=== PATIENT | female | born 1980 | race Caucasian/White ===

== ENCOUNTER 2023-08-22 21:58 | Emergency (ER) | payer OTHER, SELFPAY ==
[2023-08-22 22:06] VITALS: BP 120/80; PULSE 89; O2SAT 100
[2023-08-22 22:11] VITALS: BP 117/85; PULSE 85; RESP 16; TEMP 37.1; O2SAT 98; BMI 44.2
--- NOTE | 2023-08-22 23:27 | PC.NURSE ---
Took over care from DOV Moyer, pt resting in bed, no sign of distress, awaiting to be seen by provider.
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
[2023-08-23 00:19] LABS: Basophils Percent Auto 0.4 % (0-2); Eosinophils Absolute Auto 0.2 X10*3/uL (0.0-0.4); Eosinophils Percent Auto 1.8 % (0-4); Hematocrit 38.5 % (37.0-47.0); Hemoglobin 12.1 g/dl (12.0-16.0); Imm Gran Abs Auto 0.03 X10*3/uL (0.00-0.03); Imm Gran Pct Auto 0.4 % (0.0-0.4); Lymphocytes Absolute Auto 2.6 X10*3/uL (1.2-4.9); Lymphocytes Percent Auto 30.9 % (20-40); MANUAL DIFF FLAG NO; Mean Corpuscular HGB Conc 31.4 g/dl (31.0-35.0); Mean Corpuscular Hemoglobin 26.2 pg (27.0-33.0); Mean Corpuscular Volume 83.5 fL (80.0-98.0); Mean Platelet Volume 10.7 fL (9.4-12.3); Monocytes Absolute Auto 0.7 X10*3/uL (0.1-1.2); Monocytes Percent Auto 8.3 % (2-11); Neutrophils Absolute Auto 4.9 x10*3/uL (2.0-8.3); Neutrophils Percent Auto 58.2 % (45-73); Platelet Count 249 X10*3/uL (160-400); Red Blood Count 4.61 X10*6/uL (4.20-5.50); Red Cell Distribution Width 15.9 % (11.0-16.0); White Blood Count 8.4 X10*3/uL (4.8-10.8)
[2023-08-23 00:36] LABS: Anion Gap 12 (12-20); Blood Urea Nitrogen 17 mg/dL (9-16); Calcium 8.9 mg/dL (8.4-10.2); Carbon Dioxide 18 mmol/L (22-29); Chloride 111 mmol/L (96-108); Creatinine Clr Calc Pharmacy 113.9; Estimated Glomerular Filt Rate > 60; Glucose Random 115 mg/dL (60-115); Potassium 3.9 mmol/L (3.3-5.1); Sodium 137 mmol/L (135-145)
[2023-08-23 01:08] VITALS: BP 128/83; PULSE 89; RESP 17; TEMP 36.8; O2SAT 95
--- NOTE | 2023-08-23 01:26 | PC.NURSE ---
Provider into assess pt and discuss follow up appointment once discharge. Reviewed discharge instructions with pt. pt verbalized understanding. Per Pt. Called [facility], to request a ride back to the facility. [facility] employee will call me back.
--- NOTE | 2023-08-23 01:37 | PC.NURSE ---
shut off worker called back and is picking up pt.
== END 2023-08-23 01:38 | disposition home or self-care (01) ==
PROVIDERS: Emergency Provider Emergency Medicine; PCP Family Medicine
DX: L90.5 Scar conditions and fibrosis of skin (principal); R58 Hemorrhage, not elsewhere classified; S80.9 Unspecified superficial injury of knee and lower leg; X58.XXXS Exposure to other specified factors, sequela
CPT/HCPCS: 36415; 80048; 85025; 99283; 99284

== ENCOUNTER 2023-08-30 16:51 | Emergency (ER) | payer OTHER, SELFPAY ==
--- NOTE | ~2023-08-30 | XR_ITS ---
Examination: XR tibia fibula LT 2V, XR tibia fibula RT 2V, XR lumbar spine 2-3V Indication: Osteomyelitis? Chronic wounds. Fell and hit back Comparison: No pertinent prior studies are currently available for comparison. Technique: 2 views of the right tibia and fibula with 2 views of the left tibia and fibula as well as frontal and 2 lateral views of the lumbosacral spine. Findings: Right tibia/fibula: There is diffuse soft tissue swelling about the visualized leg. I do not appreciate any underlying acute bony abnormality. No fracture or dislocation. No bony destructive lesions, erosions, or periosteal reaction. No radiopaque foreign body or soft tissue gas. Left tibia/fibula: A milder soft tissue swelling is seen diffusely about the lower extremity. Again there is no acute underlying bony abnormality. No fracture or dislocation. No bony destructive lesions or periosteal reaction. No radiopaque foreign body or soft tissue gas. Lumbosacral spine: Bones are normal anatomic alignment with no acute fracture or spondylolisthesis. Degenerative changes are seen with osteophyte formation and endplate sclerosis more so in the lower lumbar spine. Mild sclerotic degenerative changes in the lower lumbar spine as well. No significant loss of vertebral body height. Unremarkable bowel gas pattern. Incidental tubal ligation clips noted. XR/XR tibia fibula RT 2V Impression: 1. Soft tissue swelling but no acute fracture or dislocation. No bony destructive lesions or periosteal reaction. 2. Degenerative changes in the lower lumbar spine but no acute fracture or dislocation.
--- NOTE | ~2023-08-30 | XR_ITS ---
Examination: XR tibia fibula LT 2V, XR tibia fibula RT 2V, XR lumbar spine 2-3V Indication: Osteomyelitis? Chronic wounds. Fell and hit back Comparison: No pertinent prior studies are currently available for comparison. Technique: 2 views of the right tibia and fibula with 2 views of the left tibia and fibula as well as frontal and 2 lateral views of the lumbosacral spine. Findings: Right tibia/fibula: There is diffuse soft tissue swelling about the visualized leg. I do not appreciate any underlying acute bony abnormality. No fracture or dislocation. No bony destructive lesions, erosions, or periosteal reaction. No radiopaque foreign body or soft tissue gas. Left tibia/fibula: A milder soft tissue swelling is seen diffusely about the lower extremity. Again there is no acute underlying bony abnormality. No fracture or dislocation. No bony destructive lesions or periosteal reaction. No radiopaque foreign body or soft tissue gas. Lumbosacral spine: Bones are normal anatomic alignment with no acute fracture or spondylolisthesis. Degenerative changes are seen with osteophyte formation and endplate sclerosis more so in the lower lumbar spine. Mild sclerotic degenerative changes in the lower lumbar spine as well. No significant loss of vertebral body height. Unremarkable bowel gas pattern. Incidental tubal ligation clips noted. XR/XR lumbar spine 2-3V Impression: 1. Soft tissue swelling but no acute fracture or dislocation. No bony destructive lesions or periosteal reaction. 2. Degenerative changes in the lower lumbar spine but no acute fracture or dislocation.
--- NOTE | ~2023-08-30 | XR_ITS ---
Examination: XR tibia fibula LT 2V, XR tibia fibula RT 2V, XR lumbar spine 2-3V Indication: Osteomyelitis? Chronic wounds. Fell and hit back Comparison: No pertinent prior studies are currently available for comparison. Technique: 2 views of the right tibia and fibula with 2 views of the left tibia and fibula as well as frontal and 2 lateral views of the lumbosacral spine. Findings: Right tibia/fibula: There is diffuse soft tissue swelling about the visualized leg. I do not appreciate any underlying acute bony abnormality. No fracture or dislocation. No bony destructive lesions, erosions, or periosteal reaction. No radiopaque foreign body or soft tissue gas. Left tibia/fibula: A milder soft tissue swelling is seen diffusely about the lower extremity. Again there is no acute underlying bony abnormality. No fracture or dislocation. No bony destructive lesions or periosteal reaction. No radiopaque foreign body or soft tissue gas. Lumbosacral spine: Bones are normal anatomic alignment with no acute fracture or spondylolisthesis. Degenerative changes are seen with osteophyte formation and endplate sclerosis more so in the lower lumbar spine. Mild sclerotic degenerative changes in the lower lumbar spine as well. No significant loss of vertebral body height. Unremarkable bowel gas pattern. Incidental tubal ligation clips noted. XR/XR tibia fibula LT 2V Impression: 1. Soft tissue swelling but no acute fracture or dislocation. No bony destructive lesions or periosteal reaction. 2. Degenerative changes in the lower lumbar spine but no acute fracture or dislocation.
--- NOTE | ~2023-08-30 | CT_ITS ---
EXAMINATION: CT HEAD WITHOUT CONTRAST CLINICAL INFORMATION: Headache status-post fall. COMPARISON: None. TECHNIQUE: Contiguous axial imaging was performed from the skull base to vertex without intravenous administration of contrast. Multiplanar reformatted images are submitted. This CT examination was performed using dose optimization techniques as appropriate, variously including the following: *Automated exposure control *Adjustment of mA and/or kV according to patient size (this includes techniques or standardized protocols for targeted exams where dose is matched to indication/reason for exam; i.e. extremities or head) *Use of iterative reconstruction technique DLP: 1296 mGy-cm (head and cervical spine) FINDINGS: There is no acute intracranial hemorrhage or evidence of territorial infarction. No abnormal mass effect or midline shift is seen. [place] to white matter differentiation is well preserved. There is no abnormal attenuation within the brain parenchyma. The ventricles are normal in size. No extra-axial fluid collections are identified. The calvarium and scalp soft tissues are normal. The middle ear cavity and mastoid air cells are clear. The visualized paranasal sinuses are clear. 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 CT/CT cervical spine wo IV con IMPRESSION: No acute intracranial pathology. EXAMINATION: CT CERVICAL SPINE WITHOUT CONTRAST CLINICAL INFORMATION: Neck pain status-post fall. COMPARISON: None available. TECHNIQUE: Contiguous axial imaging was performed through the cervical spine without intravenous administration of contrast. Multiplanar reformatted images are submitted. This CT examination was performed using dose optimization techniques as appropriate, variously including the following: *Automated exposure control *Adjustment of mA and/or kV according to patient size (this includes techniques or standardized protocols for targeted exams where dose is matched to indication/reason for exam; i.e. extremities or head) *Use of iterative reconstruction technique DLP: As above FINDINGS: Vertebral body heights are normal. There is mild reversal of the normal lordotic curvature. At C5-C6, there is moderately severe disc space narrowing. At C7-T1, there is mild disc space narrowing. The remaining disc spaces are well-maintained. No acute fracture or spondylolisthesis is seen. There is multi-level cervical spondylosis, most pronounced at C4-C5 and C5-C6, where it is moderate. The posterior elements are intact. There is no prevertebral soft tissue swelling. The dens is intact. The bilateral lung apices are clear. IMPRESSION: 1. No acute fracture or spondylolisthesis is seen. 2. There is mild reversal of the normal lordotic curvature, which may be associated with muscle spasm. 3. There is moderate degenerative disc disease at C5-C6, and mild degenerative disc disease is seen at C7-T1. 4. There is multi-level cervical spondylosis, most pronounced at C4-C5 and C5-C6, where it is moderate. Fleischner guidelines were followed.
[2023-08-30 16:58] VITALS: BP 160/92; PULSE 94; O2SAT 96
[2023-08-30 17:06] VITALS: BP 161/99; PULSE 98; RESP 16; TEMP 36.6; O2SAT 98; BMI 41.3
--- NOTE | 2023-08-30 17:44 | ED_ITS ---
HPI - General Adult General Chief complaint: Wound/Laceration Stated complaint: DIFFICULTY AMBULATING Time Seen by Provider: 08/30/23 17:16 Source: patient Mode of arrival: ambulatory Limitations: no limitations History of Present Illness HPI narrative: 43 yold female with chronic lower extremity wounds and substance abuse ( clean for a year) presents to the ED for evaluation of bilateral lower extremity wounds and also fallin gdown the stairs. patient states she fell down the stairs and hit her head, neck and lower back. pateitn states going down the stairs she lost footing. Patient denies loss of conscisouness. Patient denies any fever, chills, chest pain, shortness of breath, or redness. Patient has not been to wound clinic since she moved to this area 6 months. patient states chronic wounds. Related Data Allergies Allergy/AdvReac Type Severity Reaction Status Date / Time bee pollen [bee stings] Allergy Anaphylaxis Verified 08/22/23 22:10 bupropion [From Wellbutrin] Allergy Hives Verified 08/22/23 22:10 codeine Allergy Hives Verified 08/22/23 22:10 oxcarbazepine Allergy Hives Verified 08/22/23 22:10 Review of Systems 2 Review of Systems: headache, posterior neck pain and lower back pain after falling. lower extremity chronic wounds Yes all other systems are reviewed and are negative [facility] Past Medical History Medical History (Updated 08/31/23 @ 00:01 by Elle Alexander) Asthma Social History Social History Alcohol intake: former Smoked in Last 30 Days: Yes Use of substances other than those prescribed or required for medical reasons: No Advance Directives: No Advance Directives Information Provided: No Physical Exam ED Vital Signs: Vital Signs - 24 hr 08/30/23 21:56 Temperature 98.3 F Pulse Rate 92 Respiratory Rate 16 Blood Pressure 140/92 H Pulse Oximetry 97 Oxygen Delivery Method Room Air BMI result Body Mass Index 41.3 Const General: cooperative, healthy appearing, comfortable, no acute distress, well developed, alert, awake and Physically active Orientation/consciousness: oriented to person, oriented to place, oriented to time and patient oriented x3 HENMT Head: Yes normal to inspection, Yes No palpable skull fracture present, Yes normocephalic and Yes atraumatic Throat: Yes posterior oropharynx normal, Yes tonsils normal and Yes uvula midline Eyes General: appearance normal, both eyes and all related structures Neck Neck: Yes normal visual inspection, Yes full ROM, Yes no lymphadenopathy, Yes no meningeal signs, Yes trachea midline, Yes supple, No anterior neck swelling and No tender Chest Chest palpation & inspection: normal inspection of the chest and normal palpation of entire chest wall Resp Effort & Inspection: normal respiratory effort and able to speak in complete sentences Auscultation: clear to auscultation bilaterally Cardio Jugular venous distension: no JVD Heart sounds: S1 normal heart sound present and S2 normal heart sound present GI Inspection: Yes normal to inspection and No abdominal wall ecchymosis Palpation (GI): Soft to palpation, not firm, nontender, no guarding and not rigid General: Yes no CVA tenderness Back/Spine/Pelvis Back: no CVA tenderness, back tenderness (lumbar spine tenderness) and other Skin Other: chronic open wounds of lower extremites Neuro General: oriented to person, oriented to place, oriented to time, patient oriented x3, gait normal, tone normal, moves all extremities, Normal light touch and pain sensation, no meningeal signs, no focal motor deficits, CN's II-XI intact bilaterally and normal sensation to monofilament Extrem Other: Bilateral leg wounds are chronic. motor/neuro/vacular exam is intact. negative for signs of cellulitis, necrotizing fasticitis, comparmtnet syndrome, or fracture. Psych Appearance: grossly normal Medications Administered Discontinued Medications Generic Name Dose Route Start Last Admin Trade Name Freq PRN Reason Stop Dose Admin Acetaminophen 975 mg 08/30/23 18:01 08/30/23 18:06 Acetaminophen 325 Mg Tablet PO 08/30/23 18:02 975 mg ONCE ONE Administration Medical Decision Making Medical Decision Making [facility] Narrative: 43-year-old female with history of substance abuse been clean for 1 year and has chronic bilateral lower extremity wounds from a last year presents to ED for evaluation of bilateral lower extremity wounds and also falling which cause headache and low back pain. Fall occurred today at 15:30 the patient slipped muscle footing going down the stairs. Patient has not been to Wound Clinic for 6 months since moving to this area. Labs imaging ordered. 9:17pm: patient labs are normal. Images negative for osteomyelitis, fracture, brain bleed. Patient is safe for discharge. Patient wounds are chronic. Patient will be given information for wound clinic Differential Diagnosis Differential Diagnoses: The differential diagnosis associated with the presentation includes ( chronic wounds, osteomyelitis, cellulitis, brain bleed, lumbar spine fracture, cervical spine fracture) Admission/Observation Consideration of admission/observation: Escalation of care including admission/observation considered Lab Data MDM Lab Attestation statement: I reviewed the patient's lab results. 08/30/23 18:47 08/30/23 18:46 Labs: Lab Results 08/30/23 08/30/23 Range/Units 18:46 18:47 WBC 9.0 (4.8-10.8) X10*3/uL RBC 4.56 (4.20-5.50) X10*6/uL Hgb 11.8 L (12.0-16.0) g/dl Hct 37.8 (37.0-47.0) % MCV 82.9 (80.0-98.0) fL MCH 25.9 L (27.0-33.0) pg MCHC 31.2 (31.0-35.0) g/dl RDW 16.2 H (11.0-16.0) % Plt Count 237 (160-400) X10*3/uL MPV 10.3 (9.4-12.3) fL Immature Gran % (Auto) 0.4 (0.0-0.4) % Neut % (Auto) 60.9 (45-73) % Lymph % (Auto) 28.9 (20-40) % Coke % (Auto) 7.9 (2-11) % Eos % (Auto) 1.6 (0-4) % Baso % (Auto) 0.3 (0-2) % Lymph # (Auto) 2.6 (1.2-4.9) X10*3/uL [place] # (Auto) 0.7 (0.1-1.2) X10*3/uL Eos # (Auto) 0.1 (0.0-0.4) X10*3/uL Baso # (Auto) 0.0 (0.0-0.2) X10*3/uL Abs Immat Gran (auto) 0.04 H (0.00-0.03) X10*3/uL Absolute Neuts (auto) 5.4 (2.0-8.3) x10*3/uL Absolute Nucleated RBC 0.000 (0.0-0.012) X10*3/uL Nucleated RBC % (auto) 0.0 (0.0-0.2) /100WBC ESR 20 (0-20) MM/HR Sodium 140 (135-145) mmol/L Potassium 4.0 (3.3-5.1) mmol/L Chloride 107 (96-108) mmol/L Carbon Dioxide 27 (22-29) mmol/L Anion Gap 10 L (12-20) BUN 19 H (9-16) mg/dL Creatinine 0.71 (0.5-1.4) mg/dL Estim Creat Clear Calc 130.9 Estimated GFR > 60 Random Glucose 92 (60-115) mg/dL Calcium 8.8 (8.4-10.2) mg/dL Total Bilirubin 0.3 (0.0-1.0) mg/dL AST 41 H (5-31) U/L ALT 49 H (0-31) U/L Alkaline Phosphatase 106 (39-117) U/L C-Reactive Protein 1.35 H (< or = 0.50) mg/dL Total Protein 7.7 (6.5-8.0) g/dL Albumin 3.6 (3.5-5.0) g/dL Independent Interpretation I performed an independent interpretation of an: Plain X-Ray and CT Scan Radiology Impression Discussion of test interpretation with radiology: I have reviewed the radiologist's reading. External Record Review External record reviewed: Other ( prior to ED visit) Discharge Plan Discharge Clinical Impression: Chronic wound Patient Disposition: Home, Self-Care Instructions: Fall Prevention (ED), Chronic Wounds (ED) Additional Instructions: return to the ED immediately any such increased swelling, redness, pus discharge, foul odor,, headache, dizziness, chest pain, shortness of breath, dizziness, weakness, or any other other concerning symptoms. Please follow-up with primary care provider and Wound Clinic. Referrals: [facility] Wound Care Management [Provider Group] ( Chronic bilateral lower extremity wounds) Interventions: ED Discharge Assessment Last Done: 08/30/23 21:56 Discharge Date/Time: 08/30/23 22:01 Print Language: Macedonian
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
[2023-08-30] MEDS: Acetaminophen 325 MG TABLET 975 MG PO (18:06)
[2023-08-30 18:51] LABS: MANUAL DIFF FLAG NO
[2023-08-30 18:52] LABS: Basophils Percent Auto 0.3 % (0-2); Eosinophils Absolute Auto 0.1 X10*3/uL (0.0-0.4); Eosinophils Percent Auto 1.6 % (0-4); Hematocrit 37.8 % (37.0-47.0); Hemoglobin 11.8 g/dl (12.0-16.0); Imm Gran Abs Auto 0.04 X10*3/uL (0.00-0.03); Imm Gran Pct Auto 0.4 % (0.0-0.4); Lymphocytes Absolute Auto 2.6 X10*3/uL (1.2-4.9); Lymphocytes Percent Auto 28.9 % (20-40); Mean Corpuscular HGB Conc 31.2 g/dl (31.0-35.0); Mean Corpuscular Hemoglobin 25.9 pg (27.0-33.0); Mean Corpuscular Volume 82.9 fL (80.0-98.0); Mean Platelet Volume 10.3 fL (9.4-12.3); Monocytes Absolute Auto 0.7 X10*3/uL (0.1-1.2); Monocytes Percent Auto 7.9 % (2-11); Neutrophils Absolute Auto 5.4 x10*3/uL (2.0-8.3); Neutrophils Percent Auto 60.9 % (45-73); Platelet Count 237 X10*3/uL (160-400); Red Blood Count 4.56 X10*6/uL (4.20-5.50); Red Cell Distribution Width 16.2 % (11.0-16.0)
[2023-08-30 19:08] LABS: Alanine Aminotransferase 49 U/L (0-31); Albumin Level 3.6 g/dL (3.5-5.0); Alkaline Phosphatase 106 U/L (39-117); Anion Gap 10 (12-20); Aspartate Amino Transferase 41 U/L (5-31); Bilirubin Total 0.3 mg/dL (0.0-1.0); Blood Urea Nitrogen 19 mg/dL (9-16); C Reactive Protein 1.35 mg/dL (< or = 0.50); Calcium 8.8 mg/dL (8.4-10.2); Carbon Dioxide 27 mmol/L (22-29); Chloride 107 mmol/L (96-108); Creatinine Clr Calc Pharmacy 130.9; Estimated Glomerular Filt Rate > 60; Glucose Random 92 mg/dL (60-115); Sodium 140 mmol/L (135-145); Total Protein 7.7 g/dL (6.5-8.0)
[2023-08-30 19:28] VITALS: BP 148/82; PULSE 90; RESP 20; TEMP 36.7; O2SAT 98
[2023-08-30 19:31] LABS: Erythrocyte Sedimentation Rate 20 MM/HR (0-20)
[2023-08-30 21:56] VITALS: BP 140/92; PULSE 92; RESP 16; TEMP 36.8; O2SAT 97
== END 2023-08-30 22:01 | disposition home or self-care (01) ==
PROVIDERS: Physician Assistant; Emergency Provider Internal Medicine
DX: L98.499 Non-pressure chronic ulcer of skin of other sites with unspecified severity (principal); S09.90XA Unspecified injury of head, initial encounter; S19.9XXA Unspecified injury of neck, initial encounter; S39.92XA Unspecified injury of lower back, initial encounter; W10.9XXA Fall (on) (from) unspecified stairs and steps, initial encounter; Y93.9 Activity, unspecified; Y92.9 Unspecified place or not applicable; Y99.9 Unspecified external cause status; R51.9 Headache, unspecified; M54.50 Low back pain, unspecified
CPT/HCPCS: 36415; 70450; 72100; 72125; 73590; 80053; 85025; 85652; 86140; 99284

== ENCOUNTER 2023-09-07 13:04 | Inpatient (IN) | payer OTHER, SELFPAY ==
[2023-09-07 13:15] VITALS: BP 160/80; PULSE 70; PULSE 83; RESP 16; TEMP 36.4; O2SAT 98; O2SAT 99; BMI 39.9
--- NOTE | 2023-09-07 13:20 | PC.NURSE ---
patient arrived via ems. Patient called EMS today for a psych evaluation and reports increasing depression. Patient states she has a history of self harm but that she has not self harmed yet but feels her depression is escalating where she could hurt herself. Patient denies SI/HI. Patient is able to ambulate freely. Patient changed into hospital attire. belongings secured.
[2023-09-07 13:55] LABS: UPreg QC Valid YES; Urine Pregnancy NEGATIVE (NEGATIVE)
[2023-09-07 13:55] LABS: Amphetamine Screen Urine Not Detected (Not Detect); Barbiturates, Urine Not Detected (Not Detect); Benzodiazepines Screen Urine Not Detected (Not Detect); Cannabinoid Screen Urine Not Detected (Not Detect); Cocaine Screen Urine Not Detected (Not Detect); Fentanyl, urine Not Detected (Not Detect); Opiate Screen Urine Not Detected (Not Detect); Phencyclidine Screen Urine Not Detected (Not Detect)
[2023-09-07 14:03] LABS: Appearance Urine Cloudy; Color Urine Dark Yellow; Glucose Urine UA Negative (Negative); Leukocyte Esterase Urine Small (1+) (Negative); Nitrite Urine Negative (Negative); Specific Gravity - Urine >= 1.030 (1.005-1.025); UMIC TRIGGER UACC YES; Urine Blood Large (3+) (Negative); Urine Ketones Negative (Negative); Urine Protein 30 (1+) mg/dL (Neg-Trace)
[2023-09-07 14:09] LABS: Bacteria Urine None Seen (None Seen); Hyaline Casts Urine 0-2 /LPF (0-2); RBC Urine >20 /HPF (0-2); UACC Culture Trigger YES; WBC Urine 21-50 /HPF (0-5)
--- NOTE | 2023-09-07 14:46 | MHC.CARE ---
Morro Murray with [facility] calls, requesting to be called once dispo is determined, . This is patient's current fci
[2023-09-07 15:10] VITALS: RESP 16
[2023-09-07 15:11] LABS: Acetaminophen LAB < 3 mcg/mL (<30); Salicylate < 5.0 mg/dL (15-30)
[2023-09-07 15:16] LABS: Alanine Aminotransferase 58 U/L (0-31); Albumin Level 3.6 g/dL (3.5-5.0); Alkaline Phosphatase 114 U/L (39-117); Anion Gap 10 (12-20); Aspartate Amino Transferase 59 U/L (5-31); Bilirubin Total 0.3 mg/dL (0.0-1.0); Blood Urea Nitrogen 15 mg/dL (9-16); Calcium 8.1 mg/dL (8.4-10.2); Carbon Dioxide 22 mmol/L (22-29); Chloride 110 mmol/L (96-108); Estimated Glomerular Filt Rate > 60; Ethanol < 10 mg/dL; Glucose Random 111 mg/dL (60-115); Potassium 3.8 mmol/L (3.3-5.1); Sodium 138 mmol/L (135-145); Total Protein 7.5 g/dL (6.5-8.0)
[2023-09-07 15:20] LABS: MANUAL DIFF FLAG NO
[2023-09-07 15:22] LABS: Basophils Percent Auto 0.3 % (0-2); Eosinophils Absolute Auto 0.1 X10*3/uL (0.0-0.4); Eosinophils Percent Auto 2.2 % (0-4); Hematocrit 35.4 % (37.0-47.0); Imm Gran Abs Auto 0.02 X10*3/uL (0.00-0.03); Imm Gran Pct Auto 0.3 % (0.0-0.4); Lymphocytes Percent Auto 33.8 % (20-40); Mean Corpuscular HGB Conc 31.1 g/dl (31.0-35.0); Mean Corpuscular Hemoglobin 25.9 pg (27.0-33.0); Mean Corpuscular Volume 83.3 fL (80.0-98.0); Mean Platelet Volume 10.2 fL (9.4-12.3); Monocytes Absolute Auto 0.6 X10*3/uL (0.1-1.2); Neutrophils Absolute Auto 3.2 x10*3/uL (2.0-8.3); Neutrophils Percent Auto 53.4 % (45-73); Platelet Count 260 X10*3/uL (160-400); Red Blood Count 4.25 X10*6/uL (4.20-5.50); Red Cell Distribution Width 16.6 % (11.0-16.0)
[2023-09-07 18:07] VITALS: RESP 18
--- NOTE | 2023-09-07 18:08 | PC.NURSE ---
patient alert and oriented and able to make needs known. Patient is able to ambulate freely around unit. Patient has a good appetite and ate 100% of lunch and dinner. Patient denies SI/HI. Patient reading in her room at this time.
--- NOTE | 2023-09-07 19:05 | PC.NURSE ---
MLP at bedside.
--- NOTE | 2023-09-07 19:18 | ED_ITS ---
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 Patient reports that she needs a psych evaluation and wants to go to respite. Denies suicidal ideation and homicidal ideation. She reports intermittent auditory hallucinations of people talking. No drugs, alcohol or tobacco. Patient denies medical complaints. Related Data Home Medications Medication Instructions Recorded Confirmed aripiprazole 10 mg tablet 10 mg PO DAILY 09/07/23 09/07/23 chlorpromazine 25 mg tablet 25 mg PO BID PRN anxiety 09/07/23 09/07/23 clonidine HCl 0.1 mg tablet 0.1 mg PO BID 09/07/23 09/07/23 cyclobenzaprine 5 mg tablet 5 mg PO TID PRN Pain (Scale Score 09/07/23 09/07/23 1-3) escitalopram oxalate 20 mg tablet 20 mg PO DAILY 09/07/23 09/07/23 furosemide 20 mg tablet 20 mg PO DAILY 09/07/23 09/07/23 hydroxyzine pamoate 50 mg capsule 50 mg PO TID PRN anxiety 09/07/23 09/07/23 levothyroxine 50 mcg tablet 50 mcg PO DAILY@0600 09/07/23 09/08/23 mirtazapine 15 mg tablet 15 mg PO BEDTIME 09/07/23 09/07/23 naproxen 500 mg tablet 500 mg PO BID 09/07/23 09/07/23 prazosin 2 mg capsule 6 mg PO BEDTIME 09/07/23 09/08/23 topiramate 200 mg tablet 200 mg PO BID 09/07/23 09/07/23 Methadone Intensol 80 mg PO DAILY 09/08/23 09/08/23 Allergies Allergy/AdvReac Type Severity Reaction Status Date / Time bee pollen [bee stings] Allergy Anaphylaxis Verified 08/22/23 22:10 bupropion [From Wellbutrin] Allergy Hives Verified 08/22/23 22:10 codeine Allergy Hives Verified 08/22/23 22:10 oxcarbazepine Allergy Hives Verified 08/22/23 22:10 Review of Systems 2 Review of Systems: Constitutional : No Weight loss, No Fever, No Chills, No Fatigue, No Malaise ENT/Mouth : No sore throat, No Rhinorrhea Eyes: No Eye Pain, No Swelling, No Redness Cardiovascular : No Chest Pain, No SOB, No Dyspnea on Exertion, No Orthopnea, No Edema, No Palpitations Respiratory : No Cough, No Sputum, No Wheezing Gastrointestinal : No Nausea, No Vomiting, No Diarrhea, No Constipation, No abdominal Pain, No Hematochezia, No Melena Genitourinary : No Dysuria, No Urinary Frequency, No Hematuria, Musculoskeletal : No joint pain, No Myalgias, No Joint Swelling Skin : No Skin Lesions, No rash Neuro : No Weakness, No Numbness, No Dizziness, No Headache Psych : No Anxiety/Panic, + Depression, No SI / HI, + auditory hallucinations All other systems reviewed and are negative Yes all other systems are reviewed and are negative [facility] Past Medical History Attestation statement: The following information was validated with the patient. Source: old records reviewed and nursing notes reviewed Medical History Asthma Social History Alcohol intake: former Smoked in Last 30 Days: Yes Use of substances other than those prescribed or required for medical reasons: No Advance Directives: No Advance Directives Information Provided: No Patient : No Physical Exam 2 Vital Signs: Vital Signs: Last Vital Signs Temp 97.9 F 09/08/23 09:45 Pulse 73 09/08/23 09:45 Resp 16 09/08/23 09:45 BP 118/69 09/08/23 09:45 Pulse Ox 98 09/08/23 09:45 O2 Del Method Room Air 09/08/23 09:45 BMI result Body Mass Index 39.9 vss Appearance: Alert.? Oriented X3.? No acute distress.? Head: Normocephalic, atraumatic, no step-offs or deformities Eyes: Pupils equal, round and reactive to light.? ENT: Pharynx normal.? Neck: Normal inspection.? Neck supple.? CVS: Normal heart rate and rhythm.? Pulses normal.? Respiratory: No respiratory distress.? Breath sounds normal.? Abdomen: Soft and nontender.? Skin: Skin warm and dry.? Normal skin color.? Normal skin turgor.? Extremities: No lower extremity edema.? No calf ttp. 5/5 strength to bilateral upper and lower extremities + chronic wounds to b/l lower extremitites 1+ DP,AT,PT equal and b/l ( images below) Back: No midline tenderness, no C-spine tenderness, full range of motion, no CVA tenderness bilaterally Neuro: Oriented X 3.? No motor deficit.? No sensory deficit. CN 2-12 intact Course Reevaluation(s) Reevaluation #1: CBC with no acute findings requiring intervention. Chemistry unremarkable. UA without infection. Urine toxicology negative. Salicylates acetaminophen ethanol negative. At this time patient to be placed into observation to allow more time to be evaluated by the behavioral health team for possible placement. At time observation was started patient common cooperative no acute distress will continue to monitor Time: 19:26 Reevaluation #2: To continue physician observation, VSS, events overnight reported by the nurse, evaluated by care team patient is going to be admitted to inpatient psych M2, med rec re-consultation was signed. Time: 09:18 Medications Administered Generic Name Dose Route Start Last Admin Trade Name Randyq PRN Reason Stop Dose Admin Aripiprazole 10 mg 09/08/23 09:30 09/08/23 09:59 Aripiprazole 10 Mg Tablet PO 10 mg DAILY ELSY Administration Clonidine HCl 0.1 mg 09/08/23 09:30 09/08/23 09:59 Clonidine Hcl 0.1 Mg Tablet PO 0.1 mg BID ELSY Administration Protocol Escitalopram Oxalate 20 mg 09/08/23 09:30 09/08/23 09:59 Escitalopram Oxalate 20 Mg Tablet PO 20 mg DAILY ELSY Administration Furosemide 20 mg 09/08/23 09:30 09/08/23 09:58 Furosemide 20 Mg Tablet PO 20 mg DAILY ELSY Administration Protocol Methadone HCl 80 mg 09/08/23 12:15 09/08/23 12:22 Methadone Hcl 20 Mg/2 Ml Oral.Conc PO 80 mg DAILY ELSY Administration Naproxen 500 mg 09/08/23 09:30 09/08/23 09:58 Naproxen 500 Mg Tablet PO 500 mg BID ELSY Administration Topiramate 200 mg 09/08/23 09:30 09/08/23 09:58 Topiramate 100 Mg Tablet PO 200 mg BID ELSY Administration Discontinued Medications Generic Name Dose Route Start Last Admin Trade Name Austyn PRN Reason Stop Dose Admin Ibuprofen 600 mg 09/07/23 20:34 09/07/23 20:50 Ibuprofen 600 Mg Tablet PO 09/07/23 20:35 600 mg ONCE ONE Administration Medical Decision Making Medical Decision Making [facility] Narrative: 1920 43-year-old female presents with depression. Physical exam with chronic wounds to lower extremities, patient reports these are unchanged however they do hurt. Concerns for chronic wounds to lower extremities bilaterally unlikely DVT or arterial occlusion. No signs of acute cellulitis at this time. Patient is likely here for depression versus bipolar disorder versus schizophrenia. Unlikely metabolic derangement Plan at this time labs medical clearance evaluation by behavioral health Differential Diagnosis Differential Diagnoses: The differential diagnosis associated with the presentation includes Concerns for chronic wounds to lower extremities bilaterally unlikely DVT or arterial occlusion. No signs of acute cellulitis at this time. Patient is likely here for depression versus bipolar disorder versus schizophrenia. Unlikely metabolic derangement Admission/Observation Consideration of admission/observation: Escalation of care including admission/observation considered possible psych Lab Data [facility] Lab Attestation statement: I reviewed the patient's lab results. 09/07/23 15:16 09/07/23 14:41 Labs: Lab Results 09/07/23 09/07/23 09/07/23 Range/Units 13:39 13:40 14:41 WBC Cancelled RBC Cancelled Hgb Cancelled Hct Cancelled MCV Cancelled MCH Cancelled MCHC Cancelled RDW Cancelled Plt Count Cancelled MPV Cancelled Immature Gran % (Auto) Cancelled Neut % (Auto) Cancelled Lymph % (Auto) Cancelled [place] % (Auto) Cancelled Eos % (Auto) Cancelled Baso % (Auto) Cancelled Lymph # (Auto) Cancelled [place] # (Auto) Cancelled Eos # (Auto) Cancelled Baso # (Auto) Cancelled Abs Immat Gran (auto) Cancelled Absolute Neuts (auto) Cancelled Absolute Nucleated RBC Cancelled Nucleated RBC % (auto) Cancelled Sodium 138 (135-145) mmol/L Potassium 3.8 (3.3-5.1) mmol/L Chloride 110 H (96-108) mmol/L Carbon Dioxide 22 (22-29) mmol/L Anion Gap 10 L (12-20) BUN 15 (9-16) mg/dL Creatinine 0.88 (0.5-1.4) mg/dL Estim Creat Clear Calc 100.0 Estimated GFR > 60 Random Glucose 111 (60-115) mg/dL Calcium 8.1 L D (8.4-10.2) mg/dL Total Bilirubin 0.3 (0.0-1.0) mg/dL AST 59 H (5-31) U/L ALT 58 H (0-31) U/L Alkaline Phosphatase 114 (39-117) U/L Total Protein 7.5 (6.5-8.0) g/dL Albumin 3.6 (3.5-5.0) g/dL Urine Color Dark Yellow Urine Appearance Cloudy Urine pH 6.0 (5.0-9.0) Ur Specific [place] >= 1.030 H (1.005-1.025) Urine Protein 30 (1+) H (Neg-Trace) mg/dL Urine Glucose (UA) Negative (Negative) mg/dL Urine Ketones Negative (Negative) mg/dL Urine Blood Large (3+) H (Negative) Urine Nitrite Negative (Negative) Ur Leukocyte Esterase Small (1+) H (Negative) Urine RBC >20 H (0-2) /HPF Urine WBC 21-50 H (0-5) /HPF Ur Squamous Epith Cells 11-20 (0-2) /HPF Urine Bacteria None Seen (None Seen) Hyaline Casts 0-2 (0-2) /LPF Urine Test NEGATIVE (NEGATIVE) Salicylates < 5.0 L (15-30) mg/dL Urine Opiates Screen Not Detected (Not Detect) Urine Fentanyl Screen Not Detected (Not Detect) Acetaminophen < 3 (<30) mcg/mL Ur Barbiturates Screen Not Detected (Not Detect) Ur Phencyclidine Scrn Not Detected (Not Detect) Ur Amphetamines Screen Not Detected (Not Detect) U Benzodiazepines Scrn Not Detected (Not Detect) Urine Cocaine Screen Not Detected (Not Detect) U Marijuana (THC) Screen Not Detected (Not Detect) Ethyl Alcohol < 10 mg/dL 09/07/23 Range/Units 15:16 WBC 6.0 RBC 4.25 Hgb 11.0 L Hct 35.4 L MCV 83.3 MCH 25.9 L MCHC 31.1 RDW 16.6 H Plt Count 260 MPV 10.2 Immature Gran % (Auto) 0.3 Neut % (Auto) 53.4 Lymph % (Auto) 33.8 [place] % (Auto) 10.0 Eos % (Auto) 2.2 Baso % (Auto) 0.3 Lymph # (Auto) 2.0 [place] # (Auto) 0.6 Eos # (Auto) 0.1 Baso # (Auto) 0.0 Abs Immat Gran (auto) 0.02 Absolute Neuts (auto) 3.2 Absolute Nucleated RBC 0.000 Nucleated RBC % (auto) 0.0 Sodium (135-145) mmol/L Potassium (3.3-5.1) mmol/L Chloride (96-108) mmol/L Carbon Dioxide (22-29) mmol/L Anion Gap (12-20) BUN (9-16) mg/dL Creatinine (0.5-1.4) mg/dL Estim Creat Clear Calc Estimated GFR Random Glucose (60-115) mg/dL Calcium (8.4-10.2) mg/dL Total Bilirubin (0.0-1.0) mg/dL AST (5-31) U/L ALT (0-31) U/L Alkaline Phosphatase (39-117) U/L Total Protein (6.5-8.0) g/dL Albumin (3.5-5.0) g/dL Urine Color Urine Appearance Urine pH (5.0-9.0) Ur Specific [place] (1.005-1.025) Urine Protein (Neg-Trace) mg/dL Urine Glucose (UA) (Negative) mg/dL Urine Ketones (Negative) mg/dL Urine Blood (Negative) Urine Nitrite (Negative) Ur Leukocyte Esterase (Negative) Urine RBC (0-2) /HPF Urine WBC (0-5) /HPF Ur Squamous Epith Cells (0-2) /HPF Urine Bacteria (None Seen) Hyaline Casts (0-2) /LPF Urine Test (NEGATIVE) Salicylates (15-30) mg/dL Urine Opiates Screen (Not Detect) Urine Fentanyl Screen (Not Detect) Acetaminophen (<30) mcg/mL Ur Barbiturates Screen (Not Detect) Ur Phencyclidine Scrn (Not Detect) Ur Amphetamines Screen (Not Detect) U Benzodiazepines Scrn (Not Detect) Urine Cocaine Screen (Not Detect) U Marijuana (THC) Screen (Not Detect) Ethyl Alcohol mg/dL External Record Review External record reviewed: Inpatient record, Office record, Outpatient record, Prior outpatient labs, Prior outpatient radiology, Primary care record and Outside ED record Prescription Management I considered prescription management with: Antibiotic Critical Care Time Critical Care Time Critical Care Time: No Discharge Plan Discharge Clinical Impression: Depression Patient Disposition: Still a Patient Prescriptions: No Action clonidine HCl 0.1 mg tablet 0.1 mg PO BID hydroxyzine pamoate 50 mg capsule 50 mg PO TID PRN (Reason: anxiety ) levothyroxine 50 mcg tablet 50 mcg PO DAILY@0600 chlorpromazine 25 mg tablet 25 mg PO BID PRN (Reason: anxiety ) topiramate 200 mg tablet 200 mg PO BID furosemide 20 mg tablet 20 mg PO DAILY mirtazapine 15 mg tablet 15 mg PO BEDTIME prazosin 2 mg capsule 6 mg PO BEDTIME naproxen 500 mg tablet 500 mg PO BID escitalopram oxalate 20 mg tablet 20 mg PO DAILY aripiprazole 10 mg tablet 10 mg PO DAILY cyclobenzaprine 5 mg tablet 5 mg PO TID PRN (Reason: Pain (Scale Score 1-3)) Methadone Intensol 80 mg PO DAILY Interventions: [place]-Suicide Risk Severity Scale Last Done: 09/08/23 08:01
--- NOTE | 2023-09-07 19:35 | PC.NURSE ---
Care team at bedside.
--- NOTE | 2023-09-07 20:01 | PC.NURSE ---
As per care team pt was evaluated by [facility] out in the community and is looking for respite. [facility] was then unable to do an intake as pt was not responding to the questions and seemed to be sleepy. Pt now needed medical clearance for respite placement. Pt to be re-evaluated in the morning for possible respite placement or inpatient stay due to the bilateral lower extremity wounds. Monitoring ongoing.
[2023-09-07 20:12] VITALS: BP 127/86; PULSE 75; RESP 18; TEMP 36.6; O2SAT 98
--- NOTE | 2023-09-07 20:22 | MHC.CARE ---
CARE TEAM met with patient in 2 due to being brought in via EMS. Patient reported experiencing increase depression. She was initially assessed by [facility] and was found appropriate for [facility] admission. During intake, patient was reportedly observed falling asleep. She was transported to [facility] for medical clearance. Patient denied suicidal and homicidal ideation, plan, or intent. Patient reported she believes her methadone dosage is too high . She is observed falling aslee; speech was muffled and at times difficult to understand. She reported receiving methadone dosage (70mg) at [facility] prior to being assessed at [facility]. [facility] provided details of assessment and agreed to follow up with patient once medically cleared for discharge. Patient will be seen by referred to addiction services.
[2023-09-07] MEDS: Ibuprofen 600 MG TABLET PO (20:50)
--- NOTE | 2023-09-08 01:03 | MHC.EDTECH ---
I assume care of patient AT 2300 when doing my 15 minute checks found the patient vape in bed with her. This tech took the vape away from the patient. RN is aware of the vape at this time.
--- NOTE | 2023-09-08 01:21 | PC.NURSE ---
Pt reports bilateral lower leg burning . Sterile dressing applied. Pt tolerated well and reports relief.
[2023-09-08 05:48] VITALS: BP 159/89; PULSE 72; RESP 17; TEMP 36.2; O2SAT 98
--- NOTE | 2023-09-08 08:24 | MHC.CARE ---
spoke with howard @ [facility] re: [facility] LOC bed search, including sharing the MD conclusions re: wounds. Shared additionally that Abel with [facility] called [phone]. Per [facility], they are discharging patient from the program, as she has been transported to the hospital more than a patient of [facility] should be. [facility] states patient is welcome to re-apply to the program once her MH concerns have stabilized more. [facility] reports they may have a bed later today but it is uncertain.
--- NOTE | 2023-09-08 08:57 | MHC.CARE ---
patient is in review at [facility] for ACCS, per Alea
--- NOTE | 2023-09-08 09:26 | PHA.MEDREC ---
Pharmacy Consult ? Medication Reconciliation Pharmacy has completed the medication reconciliation. Reviewed med rec done by nursing
[2023-09-08 09:45] VITALS: BP 118/69; PULSE 73; RESP 16; TEMP 36.6; O2SAT 98
[2023-09-08] MEDS: Topiramate 100 MG TABLET 200 MG PO ×2 (09:58→21:07)
[2023-09-08] MEDS: NaPROXEN 500 MG TABLET PO ×2 (09:58→21:06)
[2023-09-08] MEDS: Furosemide 20 MG TABLET PO (09:58)
[2023-09-08] MEDS: ARIPiprazole 10 MG TABLET PO (09:59)
[2023-09-08] MEDS: cloNIDine HCL 0.1 MG TABLET PO ×2 (09:59→21:06)
[2023-09-08] MEDS: Escitalopram Oxalate 20 MG TABLET PO (09:59)
--- NOTE | 2023-09-08 10:31 | HE.PHANOTE ---
RE: methadone Received methadone verification form; ANUEL John 80mg last dose 09/07/23 @4454
[2023-09-08] MEDS: methADONE HCl 20 MG/2 ML ORAL.CONC 80 MG PO (12:22)
--- NOTE | 2023-09-08 14:33 | ECG_ITS ---
Test Reason : CHECK QT Blood Pressure : / mmHG Vent. Rate : 069 BPM Atrial Rate : 069 BPM P-R Int : 150 ms QRS Dur : 094 ms QT Int : 432 ms P-R-T Axes : 038 055 034 degrees QTc Int : 462 ms Normal sinus rhythm Normal ECG No previous ECGs available Referred By: Blanquita Mari Electronically Signed By:KAREN GAVIN MD
[2023-09-08 15:16] LABS: COVID-19 Test Negative (Negative); IDNOW Serial# 9DB6401D
[2023-09-08] MEDS: Nicotine Polacrilex 2 MG GUM BUCCAL (17:21)
[2023-09-08 19:45] VITALS: BP 153/78; PULSE 61; TEMP 36; O2SAT 98
--- NOTE | 2023-09-08 20:14 | HO.PSYADMNOT ---
HPI Date of Service: 09/08/23 Chief Complaint: Depression Sources of Information: patient interviewed, chart reviewed and crisis/core team assessment reviewed HPI Subjective Notes: Hitchcock Warning and Conditional Voluntary Narrative: Patient is a 43-year-old female with history of PTSD, depression, opioid dependence in sustained remission on methadone, reportedly bipolar disorder, chronic wounds to b/l lower extremitites, who presents for worsening depression and SI in the face of relational strife at [facility]. Patient reports that she wanted to get off methadone since she found emotionally blunting. However to do so she felt the need to be in a supportive environment and so went to [facility] hoping to find other women there also in recovery he would be supportive. Patient has been sober for year, citing love for her kids and grandkids as stronger than her need for the drug. Patient said she went from a methadone 120 mg down to 0 in one week. At the [facility] she was dope sick, craving using, nauseous, feeling miserable. She said she wanted to use so badly that she felt suicidal and told 1 of the workers that if she left the house she was going to use heroin and take herself out with it. Patient was taken to [facility] ED for safety assessment and restarted on methadone. She had a back on 80 mg and upon return to the house found herself nodding off during groups. Patient said that both the female peers and staff were incredibly derisive, targeting her, making fun of her, being mean, hurtful. Patient could not understand why and began to feel very emotionally hurt, wanting to get high, feeling depressed and again suicidal. Patient thus self presented. Signals Intelligence Superintendent reviewed for manic behaviors but could not find clear indication for episodes Past Psychiatric History: Past psychiatric admissions; last 06/18/2023 at [facility] History of suicide attempt by cutting wrists Medical Evaluation Reviewed: Hospitalist Zachary Pending [facility] Medical History (Updated 09/08/23 @ 20:22 by Gordon Calderon MD) PTSD (post-traumatic stress disorder) MDD (major depressive disorder), recurrent severe, without psychosis Asthma Family History: Deferred Social History: At a [facility]; otherwise homeless Substance History: Opioid use disorder, in sustained remission for 1 year, on methadone Trauma History: Positive trauma history; did not discuss details Diagnostics Vital Signs (24Hr): Vital Signs - 24 hr 09/08/23 05:48 09/08/23 09:45 Temperature 97.2 F 97.9 F Pulse Rate 72 73 Respiratory Rate 17 16 Blood Pressure 159/89 H 118/69 Pulse Oximetry 98 98 Oxygen Delivery Method Room Air Room Air BMI result Body Mass Index 39.9 Labs 09/07/23 15:16 09/07/23 14:41 Labs: Laboratory Results - last 48 hr 09/07/23 09/07/23 09/07/23 13:39 13:40 14:41 WBC Cancelled RBC Cancelled Hgb Cancelled Hct Cancelled MCV Cancelled MCH Cancelled MCHC Cancelled RDW Cancelled Plt Count Cancelled MPV Cancelled Immature Gran % (Auto) Cancelled Neut % (Auto) Cancelled Lymph % (Auto) Cancelled [place] % (Auto) Cancelled Eos % (Auto) Cancelled Baso % (Auto) Cancelled Lymph # (Auto) Cancelled [place] # (Auto) Cancelled Eos # (Auto) Cancelled Baso # (Auto) Cancelled Abs Immat Gran (auto) Cancelled Absolute Neuts (auto) Cancelled Absolute Nucleated RBC Cancelled Nucleated RBC % (auto) Cancelled Sodium 138 Potassium 3.8 Chloride 110 H Carbon Dioxide 22 Anion Gap 10 L BUN 15 Creatinine 0.88 Estim Creat Clear Calc 100.0 Estimated GFR > 60 Random Glucose 111 Calcium 8.1 L D Total Bilirubin 0.3 AST 59 H ALT 58 H Alkaline Phosphatase 114 Total Protein 7.5 Albumin 3.6 Urine Color Dark Yellow Urine Appearance Cloudy Urine pH 6.0 Ur Specific [place] >= 1.030 H Urine Protein 30 (1+) H Urine Glucose (UA) Negative Urine Ketones Negative Urine Blood Large (3+) H Urine Nitrite Negative Ur Leukocyte Esterase Small (1+) H Urine RBC >20 H Urine WBC 21-50 H Ur Squamous Epith Cells 11-20 Urine Bacteria None Seen Hyaline Casts 0-2 Urine Test NEGATIVE Salicylates < 5.0 L Urine Opiates Screen Not Detected Urine Fentanyl Screen Not Detected Acetaminophen < 3 Ur Barbiturates Screen Not Detected Ur Phencyclidine Scrn Not Detected Ur Amphetamines Screen Not Detected U Benzodiazepines Scrn Not Detected Urine Cocaine Screen Not Detected U Marijuana (THC) Screen Not Detected Ethyl Alcohol < 10 COVID-19 (DAYO) COVID-19 Clin Com 09/07/23 09/08/23 15:16 14:49 WBC 6.0 RBC 4.25 Hgb 11.0 L Hct 35.4 L MCV 83.3 MCH 25.9 L MCHC 31.1 RDW 16.6 H Plt Count 260 MPV 10.2 Immature Gran % (Auto) 0.3 Neut % (Auto) 53.4 Lymph % (Auto) 33.8 [place] % (Auto) 10.0 Eos % (Auto) 2.2 Baso % (Auto) 0.3 Lymph # (Auto) 2.0 [place] # (Auto) 0.6 Eos # (Auto) 0.1 Baso # (Auto) 0.0 Abs Immat Gran (auto) 0.02 Absolute Neuts (auto) 3.2 Absolute Nucleated RBC 0.000 Nucleated RBC % (auto) 0.0 Sodium Potassium Chloride Carbon Dioxide Anion Gap BUN Creatinine Estim Creat Clear Calc Estimated GFR Random Glucose Calcium Total Bilirubin AST ALT Alkaline Phosphatase Total Protein Albumin Urine Color Urine Appearance Urine pH Ur Specific [place] Urine Protein Urine Glucose (UA) Urine Ketones Urine Blood Urine Nitrite Ur Leukocyte Esterase Urine RBC Urine WBC Ur Squamous Epith Cells Urine Bacteria Hyaline Casts Urine Test Salicylates Urine Opiates Screen Urine Fentanyl Screen Acetaminophen Ur Barbiturates Screen Ur Phencyclidine Scrn Ur Amphetamines Screen U Benzodiazepines Scrn Urine Cocaine Screen U Marijuana (THC) Screen Ethyl Alcohol COVID-19 (DAYO) Negative COVID-19 Clin Com See Note Meds/Allergies Meds Home Medications Medication Instructions Recorded Confirmed Type aripiprazole 10 mg tablet 10 mg PO DAILY 09/07/23 09/07/23 History chlorpromazine 25 mg tablet 25 mg PO BID PRN anxiety 09/07/23 09/07/23 History clonidine HCl 0.1 mg tablet 0.1 mg PO BID 09/07/23 09/07/23 History cyclobenzaprine 5 mg tablet 5 mg PO TID PRN Pain (Scale Score 09/07/23 09/07/23 History 1-3) escitalopram oxalate 20 mg tablet 20 mg PO DAILY 09/07/23 09/07/23 History furosemide 20 mg tablet 20 mg PO DAILY 09/07/23 09/07/23 History hydroxyzine pamoate 50 mg capsule 50 mg PO TID PRN anxiety 09/07/23 09/07/23 History levothyroxine 50 mcg tablet 50 mcg PO DAILY@0600 09/07/23 09/08/23 History mirtazapine 15 mg tablet 15 mg PO BEDTIME 09/07/23 09/07/23 History naproxen 500 mg tablet 500 mg PO BID 09/07/23 09/07/23 History prazosin 2 mg capsule 6 mg PO BEDTIME 09/07/23 09/08/23 History topiramate 200 mg tablet 200 mg PO BID 09/07/23 09/07/23 History Methadone Intensol 80 mg PO DAILY 09/08/23 09/08/23 History Allergies Allergies Allergy/AdvReac Type Severity Reaction Status Date / Time bee pollen [bee stings] Allergy Anaphylaxis Verified 08/22/23 22:10 bupropion [From Wellbutrin] Allergy Hives Verified 08/22/23 22:10 codeine Allergy Hives Verified 08/22/23 22:10 oxcarbazepine Allergy Hives Verified 08/22/23 22:10 Mental Status Exam Mental Status Exam Narrative: Pt is alert and oriented; behavior is cooperative, emotional, tearful patient is not in distress; dressed in hospital attire with unkempt hair, left eye ptosis, adequate hygiene; mood is described as depressed and affect constricted, tearful; eye contact appropriate; Speech is normal rate, volume and prosody and not pressured; psychomotor retardation present; thought process is goal directed; Thought content is on being poorly treated at nursing home, hurt feelings; otherwise pertinent to relevant topics and without any delusional content, paranoid ideations or grandiosity; intermittent passive SI; no HI. There is no evidence of perceptual disturbance. Patients insight and judgment impaired Assessment & Plan Assessment & Plan (1) MDD (major depressive disorder), recurrent severe, without psychosis: Status: Acute Code(s): F33.2 - Major depressive disorder, recurrent severe without psychotic features (2) PTSD (post-traumatic stress disorder): Status: Acute Code(s): F43.10 - Post-traumatic stress disorder, unspecified (3) Opioid use disorder, severe, in sustained remission: Status: Acute Code(s): F11.21 - Opioid dependence, in remission Plan Patient is a 43-year-old female with history of PTSD, depression, opioid dependence in sustained remission on methadone, reportedly bipolar disorder, chronic wounds to b/l lower extremitites, who presents for worsening depression and SI in the face of relational strife at [facility]. Patient reports that she wanted to get off methadone since she found emotionally blunting. However to do so she felt the need to be in a supportive environment and so went to [facility] hoping to find other women there also in recovery he would be supportive. Patient has been sober for year, citing love for her kids and grandkids as stronger than her need for the drug. Patient said she went from a methadone 120 mg down to 0 in one week. At the [facility] she was dope sick, craving using, nauseous, feeling miserable. She said she wanted to use so badly that she felt suicidal and told 1 of the workers that if she left the house she was going to use heroin and take herself out with it. Patient was taken to [facility] ED for safety assessment and restarted on methadone. She had a back on 80 mg and upon return to the house found herself nodding off during groups. Patient said that both the female peers and staff were incredibly derisive, targeting her, making fun of her, being mean, hurtful. Patient could not understand why and began to feel very emotionally hurt, wanting to get high, feeling depressed and again suicidal. Patient thus self presented. -Will continue home medications which patient says she takes consistently and have been helpful; Signals Intelligence Superintendent reviewed for manic behaviors but could not find clear evidence for manic episodes -patient wants to get on Suboxone, saying methadone has caused emotional blunting and that she has been on Suboxone before and found it helpful Plan: CV Q 15 minute checks Continue home medication regimen Will discuss dispo planning Care for chronic wounds to b/l lower extremitites Will help patient transition from methadone to Suboxone: Day 1 suboxone 0.5mg (plus methadone dose) (0.25 of a 2/0.5 film) Day 2 suboxone 0.5mg bid (plus methadone dose) (0.25 of a 2/0.5 film) Day 3 suboxone 1mg Bid (plus methadone dose) (0.5 of a 2/0.5 film) Day 4 suboxone 2mg Bid (plus methadone dose) Day 5 suboxone 4mg Bid (plus methadone dose) Day 6 suboxone 4mg bid (plus methadone dose) Day 7 suboxone 8mg and 4mg (LAST methadone dose) Day 8 suboxone 8mg Bid (NO METHADONE ) Patient educated on: diagnosis, medication risk/benefits and substance abuse Informed Consent: understands Reason for continued inpatient stay Substantial Risk for: rapid decompensation Statement Statement: I have reviewed the history and physical and performed a pertinent examination on my patient. No changes have occurred unless specified. If the History and Physical was not performed prior to admission, the Hospitalist's service will be consulted for completing the admission physical. Time Spent With Patient Time: Total time managing care of this patient today ____ minutes.
[2023-09-08] MEDS: Mirtazapine 15 MG TABLET PO (21:06)
[2023-09-08] MEDS: Prazosin HCL 1 MG CAPSULE 6 MG PO (21:07)
[2023-09-09 00:40] VITALS: BMI 39.9
--- NOTE | 2023-09-09 00:50 | PC.ADMIT ---
Patient is a 43 year old single Azeri speaking female admitted as a CV admission to at 1940 and placed on 15 minute safety checks. Patient has not been inpatient at [facility] but has been evaluated two other times in the ED. The current reason for her admission is a referral from [facility] for medical clearance and possible [facility] admission. She is from the [place] area but had been living at the [facility] for the last three weeks. However, the staff at [facility] expressed concerns regarding the patient's safety as she was engaging in self-harming behavior, and endorsed SI. Her admission to [facility] was declined and patient was then brought to [facility] ED, evaluated by the CARE team and deemed in need of IPLOC. The patient indicated that her Metha done dose is too high and that is why she is having trouble at the [facility] Program. According to the intake, patient has open wounds to bilateral lower extremities. The patient reported to this medical technical writer that it was due to varicose veins. But in the intake there is a question if patient has been intentionally burning herself. Patient was very sleepy during the admission process and was unable to sign legals. She was able to answer a few questions. She denied any SI, HI, AH or VH. She said she is concerned about her methadone dose. However, patient declined Suboxone 0.25 mg SL that was offered at and stated I might go into methadone withdrawal if I take even that much. Patient went to be. Declined to fill out a menu and asked for a house menu for breakfast. She was shown to her room, she then took her meds and fell asleep. Patient will need to sign legals in the a.m.
[2023-09-09 06:00] VITALS: BP 112/67; PULSE 77; RESP 18; TEMP 36.6; O2SAT 96
[2023-09-09] MEDS: Levothyroxine Sodium 50 MCG TABLET PO (06:02)
[2023-09-09] MEDS: ARIPiprazole 10 MG TABLET PO (08:30)
[2023-09-09] MEDS: Topiramate 100 MG TABLET 200 MG PO ×2 (08:30→20:10)
[2023-09-09] MEDS: Escitalopram Oxalate 20 MG TABLET PO (08:30)
[2023-09-09] MEDS: Furosemide 20 MG TABLET PO (08:30)
[2023-09-09] MEDS: NaPROXEN 500 MG TABLET PO ×2 (08:31→20:10)
[2023-09-09] MEDS: methADONE HCl 20 MG/2 ML ORAL.CONC 80 MG PO (08:31)
[2023-09-09] MEDS: cloNIDine HCL 0.1 MG TABLET PO ×2 (08:31→20:10)
[2023-09-09] MEDS: Buprenorphine/Naloxone 2/0.5mg FILM 0.25 FILM SUBLINGUAL (11:33)
--- NOTE | 2023-09-09 12:14 | P.PNPSI_ITS ---
Subjective Subjective Date of Service: 09/09/23 Reason For Visit: Depression Interim History: Met with patient; discussed with team Patient feeling a little better today. Slept okay. Anxious about transitioning to Suboxone while still on methadone; explained again the procedure and patient felt better about it and wants to continue Mental Status Exam Mental Status Exam Narrative: Pt is alert and oriented; behavior is cooperative, emotional, tearful patient is not in distress; dressed in hospital attire with unkempt hair, left eye ptosis, adequate hygiene; mood is described as depressed and affect constricted, tearful; eye contact appropriate; Speech is normal rate, volume and prosody and not pressured; psychomotor retardation present; thought process is goal directed; Thought content is on being poorly treated at [facility], hurt feelings; otherwise pertinent to relevant topics and without any delusional content, paranoid ideations or grandiosity; intermittent passive SI; no HI. There is no evidence of perceptual disturbance. Patients insight and judgment impaired Diagnostics Vital Signs (24Hr): Vital Signs - 24 hr 09/08/23 19:45 09/09/23 06:00 Temperature 96.8 F 97.8 F Pulse Rate 61 77 Respiratory Rate 18 Blood Pressure 153/78 H 112/67 Pulse Oximetry 98 96 Oxygen Delivery Method Room Air Room Air BMI result Body Mass Index 39.9 Labs 09/07/23 15:16 09/07/23 14:41 Labs: Laboratory Results - last 48 hr 09/07/23 09/07/23 09/07/23 13:39 13:40 14:41 WBC Cancelled RBC Cancelled Hgb Cancelled Hct Cancelled MCV Cancelled MCH Cancelled MCHC Cancelled RDW Cancelled Plt Count Cancelled MPV Cancelled Immature Gran % (Auto) Cancelled Neut % (Auto) Cancelled Lymph % (Auto) Cancelled [place] % (Auto) Cancelled Eos % (Auto) Cancelled Baso % (Auto) Cancelled Lymph # (Auto) Cancelled [place] # (Auto) Cancelled Eos # (Auto) Cancelled Baso # (Auto) Cancelled Abs Immat Gran (auto) Cancelled Absolute Neuts (auto) Cancelled Absolute Nucleated RBC Cancelled Nucleated RBC % (auto) Cancelled Sodium 138 Potassium 3.8 Chloride 110 H Carbon Dioxide 22 Anion Gap 10 L BUN 15 Creatinine 0.88 Estim Creat Clear Calc 100.0 Estimated GFR > 60 Random Glucose 111 Calcium 8.1 L D Total Bilirubin 0.3 AST 59 H ALT 58 H Alkaline Phosphatase 114 Total Protein 7.5 Albumin 3.6 Urine Color Dark Yellow Urine Appearance Cloudy Urine pH 6.0 Ur Specific [place] >= 1.030 H Urine Protein 30 (1+) H Urine Glucose (UA) Negative Urine Ketones Negative Urine Blood Large (3+) H Urine Nitrite Negative Ur Leukocyte Esterase Small (1+) H Urine RBC >20 H Urine WBC 21-50 H Ur Squamous Epith Cells 11-20 Urine Bacteria None Seen Hyaline Casts 0-2 Urine Test NEGATIVE Salicylates < 5.0 L Urine Opiates Screen Not Detected Urine Fentanyl Screen Not Detected Acetaminophen < 3 Ur Barbiturates Screen Not Detected Ur Phencyclidine Scrn Not Detected Ur Amphetamines Screen Not Detected U Benzodiazepines Scrn Not Detected Urine Cocaine Screen Not Detected U Marijuana (THC) Screen Not Detected Ethyl Alcohol < 10 COVID-19 ([facility]O) COVID-19 [employer] Com 09/07/23 09/08/23 15:16 14:49 WBC 6.0 RBC 4.25 Hgb 11.0 L Hct 35.4 L MCV 83.3 MCH 25.9 L MCHC 31.1 RDW 16.6 H Plt Count 260 MPV 10.2 Immature Gran % (Auto) 0.3 Neut % (Auto) 53.4 Lymph % (Auto) 33.8 [place] % (Auto) 10.0 Eos % (Auto) 2.2 Baso % (Auto) 0.3 Lymph # (Auto) 2.0 [place] # (Auto) 0.6 Eos # (Auto) 0.1 Baso # (Auto) 0.0 Abs Immat Gran (auto) 0.02 Absolute Neuts (auto) 3.2 Absolute Nucleated RBC 0.000 Nucleated RBC % (auto) 0.0 Sodium Potassium Chloride Carbon Dioxide Anion Gap BUN Creatinine Estim Creat Clear Calc Estimated GFR Random Glucose Calcium Total Bilirubin AST ALT Alkaline Phosphatase Total Protein Albumin Urine Color Urine Appearance Urine pH Ur Specific [place] Urine Protein Urine Glucose (UA) Urine Ketones Urine Blood Urine Nitrite Ur Leukocyte Esterase Urine RBC Urine WBC Ur Squamous Epith Cells Urine Bacteria Hyaline Casts Urine Test Salicylates Urine Opiates Screen Urine Fentanyl Screen Acetaminophen Ur Barbiturates Screen Ur Phencyclidine Scrn Ur Amphetamines Screen U Benzodiazepines Scrn Urine Cocaine Screen U Marijuana (THC) Screen Ethyl Alcohol COVID-19 (DAYO) Negative COVID-19 Clin Com See Note Medications Medications Current Medications Acetaminophen (Acetaminophen 325 Mg Tablet) 650 mg PO Q6H PRN PRN Reason: Headache/Pain Mild Scale (1-3) Al Hydroxide/Mg Hydroxide (Magnesium Hydrox/Alum Hydrox 30 Ml Oral.Susp) 30 ml PO Q6H PRN PRN Reason: Heartburn/Nausea Albuterol Sulfate (Albuterol Sulfate 90 Mcg 8 Gm Inhaler) 2 puff INHALE RQ4H PRN PRN Reason: Shortness of Breath Aripiprazole (Aripiprazole 10 Mg Tablet) 10 mg PO DAILY [facility] Last Admin: 09/09/23 08:30 Dose: 10 mg Buprenorphine/Naloxone (Buprenorphine/Naloxone 2/0.5mg Film) 0.25 film SUBLINGUAL BID [facility] Stop: 09/09/23 23:00 Last Admin: 09/09/23 11:33 Dose: 0.25 film Buprenorphine/Naloxone (Buprenorphine/Naloxone 2/0.5mg Film) 0.5 film SUBLINGUAL BID [facility] Chlorpromazine HCl (Chlorpromazine Hcl 25 Mg Tablet) 25 mg PO BID PRN PRN Reason: anxiety Clonidine HCl (Clonidine Hcl 0.1 Mg Tablet) 0.1 mg PO BID [facility]; Protocol Last Admin: 09/09/23 08:31 Dose: 0.1 mg Cyclobenzaprine HCl (Cyclobenzaprine Hcl 5 Mg Tablet) 5 mg PO TID PRN PRN Reason: Pain (Scale Score 1-3) Escitalopram Oxalate (Escitalopram Oxalate 20 Mg Tablet) 20 mg PO DAILY [facility] Last Admin: 09/09/23 08:30 Dose: 20 mg Furosemide (Furosemide 20 Mg Tablet) 20 mg PO DAILY [facility]; Protocol Last Admin: 09/09/23 08:30 Dose: 20 mg Hydroxyzine HCl (Hydroxyzine Hcl 50 Mg Tablet) 50 mg PO TID PRN PRN Reason: anxiety Levothyroxine Sodium (Levothyroxine Sodium 50 Mcg Tablet) 50 mcg PO DAILY@0600 [facility] Last Admin: 09/09/23 06:02 Dose: 50 mcg Magnesium Hydroxide (Milk Of Magnesia 30 Ml Oral.Susp) 30 ml PO DAILY PRN PRN Reason: Constipation Methadone HCl (Methadone Hcl 20 Mg/2 Ml Oral.Conc) 80 mg PO DAILY [facility] Last Admin: 09/09/23 08:31 Dose: 80 mg Mirtazapine (Mirtazapine 15 Mg Tablet) 15 mg PO BEDTIME [facility] Last Admin: 09/08/23 21:06 Dose: 15 mg Naproxen (Naproxen 500 Mg Tablet) 500 mg PO BID [facility] Last Admin: 09/09/23 08:31 Dose: 500 mg Nicotine (Nicotine 21 Mg Patch.Td24) 21 mg TRANSDERMA DAILY PRN PRN Reason: smoking cessation Nicotine Polacrilex (Nicotine Polacrilex 2 Mg Gum) 2 mg BUCCAL QID PRN PRN Reason: Nicotine Cravings Last Admin: 09/08/23 17:21 Dose: 2 mg Nicotine Polacrilex (Nicotine Polacrilex 2 Mg Gum) 4 mg BUCCAL Q2H PRN PRN Reason: Nicotine Cravings Prazosin HCl (Prazosin Hcl 1 Mg Capsule) 6 mg PO BEDTIME [facility]; Protocol Last Admin: 09/08/23 21:07 Dose: 6 mg Topiramate (Topiramate 100 Mg Tablet) 200 mg PO BID [facility] Last Admin: 09/09/23 08:30 Dose: 200 mg Trazodone HCl (Trazodone Hcl 50 Mg Tablet) 50 mg PO BEDTIME MRX1 PRN PRN Reason: Insomnia Allergies Allergies Allergy/AdvReac Type Severity Reaction Status Date / Time bee pollen [bee stings] Allergy Anaphylaxis Verified 08/22/23 22:10 bupropion [From Wellbutrin] Allergy Hives Verified 08/22/23 22:10 codeine Allergy Hives Verified 08/22/23 22:10 oxcarbazepine Allergy Hives Verified 08/22/23 22:10 Assessment & Plan Assessment & Plan (1) MDD (major depressive disorder), recurrent severe, without psychosis: Status: Acute Code(s): F33.2 - Major depressive disorder, recurrent severe without psychotic features (2) PTSD (post-traumatic stress disorder): Status: Acute Code(s): F43.10 - Post-traumatic stress disorder, unspecified (3) Opioid use disorder, severe, in sustained remission: Status: Acute Code(s): F11.21 - Opioid dependence, in remission Plan Patient is a 43-year-old female with history of PTSD, depression, opioid dependence in sustained remission on methadone, reportedly bipolar disorder, chronic wounds to b/l lower extremitites, who presents for worsening depression and SI in the face of relational strife at recovery house. Patient reports that she wanted to get off methadone since she found emotionally blunting. However to do so she felt the need to be in a supportive environment and so went to [facility] hoping to find other women there also in recovery he would be supportive. Patient has been sober for year, citing love for her kids and grandkids as stronger than her need for the drug. Patient said she went from a methadone 120 mg down to 0 in one week. At the [facility] she was dope sick, craving using, nauseous, feeling miserable. She said she wanted to use so badly that she felt suicidal and told 1 of the workers that if she left the house she was going to use heroin and take herself out with it. Patient was taken to [facility] ED for safety assessment and restarted on methadone. She had a back on 80 mg and upon return to the house found herself nodding off during groups. Patient said that both the female peers and staff were incredibly derisive, targeting her, making fun of her, being mean, hurtful. Patient could not understand why and began to feel very emotionally hurt, wanting to get high, feeling depressed and again suicidal. Patient thus self presented. -Will continue home medications which patient says she takes consistently and have been helpful; Cloth Opener Hand reviewed for manic behaviors but could not find clear evidence for manic episodes -patient wants to get on Suboxone, saying methadone has caused emotional blunting and that she has been on Suboxone before and found it helpful Hospital course: 09/09 mood a little better, wants to continue with transition from methadone to Suboxone Plan: CV Q 15 minute checks Continue home medication regimen Will discuss dispo planning Care for chronic wounds to b/l lower extremitites Will help patient transition from methadone to Suboxone: 09/09 Day 1 suboxone 0.5mg (plus methadone dose) (0.25 of a 2/0.5 film) Day 2 suboxone 0.5mg bid (plus methadone dose) (0.25 of a 2/0.5 film) Day 3 suboxone 1mg Bid (plus methadone dose) (0.5 of a 2/0.5 film) Day 4 suboxone 2mg Bid (plus methadone dose) Day 5 suboxone 4mg Bid (plus methadone dose) Day 6 suboxone 4mg bid (plus methadone dose) Day 7 suboxone 8mg and 4mg (LAST methadone dose) Day 8 suboxone 8mg Bid (NO METHADONE ) Patient educated on: diagnosis, medication risk/benefits and substance abuse Informed Consent: understands Reason for continued inpatient stay Substantial Risk for: rapid decompensation Time Spent With Patient Time: Total time managing care of this patient today ____ minutes.
[2023-09-09] MEDS: chlorproMAZINE HCl 25 MG TABLET PO (13:26)
[2023-09-09] MEDS: hydrOXYzine HCL 50 MG TABLET PO (13:26)
[2023-09-09 18:00] VITALS: BP 137/70; PULSE 86; RESP 16; TEMP 36.7; O2SAT 97
[2023-09-09] MEDS: Mirtazapine 15 MG TABLET PO (20:10)
[2023-09-09] MEDS: Cyclobenzaprine HCl 5 MG TABLET PO (20:10)
[2023-09-09] MEDS: Prazosin HCL 1 MG CAPSULE 6 MG PO (20:10)
[2023-09-10] MEDS: Levothyroxine Sodium 50 MCG TABLET PO (06:06)
[2023-09-10] MEDS: ARIPiprazole 10 MG TABLET PO (08:37)
[2023-09-10] MEDS: NaPROXEN 500 MG TABLET PO ×2 (08:37→20:50)
[2023-09-10] MEDS: Escitalopram Oxalate 20 MG TABLET PO (08:37)
[2023-09-10] MEDS: Topiramate 100 MG TABLET 200 MG PO ×2 (08:37→20:49)
[2023-09-10] MEDS: Furosemide 20 MG TABLET PO (08:37)
[2023-09-10] MEDS: cloNIDine HCL 0.1 MG TABLET PO ×2 (08:38→20:48)
[2023-09-10] MEDS: methADONE HCl 20 MG/2 ML ORAL.CONC 80 MG PO (08:39)
[2023-09-10] MEDS: Buprenorphine/Naloxone 2/0.5mg FILM 0.25 FILM SUBLINGUAL ×2 (08:48→20:50)
[2023-09-10 08:57] VITALS: BP 130/75; PULSE 88; RESP 16; TEMP 36.3; O2SAT 98
--- NOTE | 2023-09-10 09:37 | P.PNPSI_ITS ---
Subjective Subjective Date of Service: 09/10/23 Reason For Visit: Depression Interim History: met with patient; discussed with team Patient says still depressed however feeling a little better. No problems with transition to Suboxone. Patient Clarified that problems at long-term were just for 1 day only, on where people were irritated with 1 another given the emotionality of the holiday. She said she did make a challenge/threat to peer saying she would fight her however she was able to be redirected. Patient said she can go back and wants to go back and thinks that probably she and others can make up and move on. Patient said otherwise medication regimen has proved helpful and does not want further medication changes. Discussed isolating on unit and patient said it takes her a while to warm up to others; agreed to venture out and consider participating Patient said prior to this program she was working as a live-in packaging line attendant for about 10 years; however this person past and so she had to move out. Mental Status Exam Mental Status Exam Narrative: Pt is alert and oriented; behavior is cooperative, but remains isolating; adequate hygiene; mood is described as ok and affect constricted; eye contact appropriate; Speech is normal rate, volume and prosody and not pressured; psychomotor retardation present; thought process is goal directed; Thought content is on being poorly treated at long-term, hurt feelings; otherwise pertinent to relevant topics and without any delusional content, paranoid ideations or grandiosity; Denies SI; no HI. There is no evidence of perceptual disturbance. Patients insight and judgment fair Diagnostics Vital Signs (24Hr): Vital Signs - 24 hr 09/09/23 18:00 09/10/23 08:57 Temperature 98.0 F 97.4 F Pulse Rate 86 88 Respiratory Rate 16 16 Blood Pressure 137/70 130/75 Pulse Oximetry 97 98 Oxygen Delivery Method Room Air Room Air BMI result Body Mass Index 39.9 Labs 09/07/23 15:16 09/07/23 14:41 Labs: Laboratory Results - last 48 hr 09/08/23 14:49 COVID-19 ([facility]) Negative COVID-19 Clin Com See Note Medications Medications Current Medications Acetaminophen (Acetaminophen 325 Mg Tablet) 650 mg PO Q6H PRN PRN Reason: Headache/Pain Mild Scale (1-3) Al Hydroxide/Mg Hydroxide (Magnesium Hydrox/Alum Hydrox 30 Ml Oral.Susp) 30 ml PO Q6H PRN PRN Reason: Heartburn/Nausea Albuterol Sulfate (Albuterol Sulfate 90 Mcg 8 Gm Inhaler) 2 puff INHALE RQ4H PRN PRN Reason: Shortness of Breath Aripiprazole (Aripiprazole 10 Mg Tablet) 10 mg PO DAILY [facility] Last Admin: 09/10/23 08:37 Dose: 10 mg Buprenorphine/Naloxone (Buprenorphine/Naloxone 2/0.5mg Film) 0.25 film SUBLINGUAL BID [facility] Last Admin: 09/10/23 08:48 Dose: 0.25 film Buprenorphine/Naloxone (Buprenorphine/Naloxone 2/0.5mg Film) 0.5 film SUBLINGUAL BID [facility] Chlorpromazine HCl (Chlorpromazine Hcl 25 Mg Tablet) 25 mg PO BID PRN PRN Reason: anxiety Last Admin: 09/09/23 13:26 Dose: 25 mg Clonidine HCl (Clonidine Hcl 0.1 Mg Tablet) 0.1 mg PO BID [facility]; Protocol Last Admin: 09/10/23 08:38 Dose: 0.1 mg Cyclobenzaprine HCl (Cyclobenzaprine Hcl 5 Mg Tablet) 5 mg PO TID PRN PRN Reason: Pain (Scale Score 1-3) Last Admin: 09/09/23 20:10 Dose: 5 mg Escitalopram Oxalate (Escitalopram Oxalate 20 Mg Tablet) 20 mg PO DAILY [facility] Last Admin: 09/10/23 08:37 Dose: 20 mg Furosemide (Furosemide 20 Mg Tablet) 20 mg PO DAILY [facility]; Protocol Last Admin: 09/10/23 08:37 Dose: 20 mg Hydroxyzine HCl (Hydroxyzine Hcl 50 Mg Tablet) 50 mg PO TID PRN PRN Reason: anxiety Last Admin: 09/09/23 13:26 Dose: 50 mg Levothyroxine Sodium (Levothyroxine Sodium 50 Mcg Tablet) 50 mcg PO DAILY@0600 [facility] Last Admin: 09/10/23 06:06 Dose: 50 mcg Magnesium Hydroxide (Milk Of Magnesia 30 Ml Oral.Susp) 30 ml PO DAILY PRN PRN Reason: Constipation Methadone HCl (Methadone Hcl 20 Mg/2 Ml Oral.Conc) 80 mg PO DAILY [facility] Last Admin: 09/10/23 08:39 Dose: 80 mg Mirtazapine (Mirtazapine 15 Mg Tablet) 15 mg PO BEDTIME [facility] Last Admin: 09/09/23 20:10 Dose: 15 mg Naproxen (Naproxen 500 Mg Tablet) 500 mg PO BID [facility] Last Admin: 09/10/23 08:37 Dose: 500 mg Nicotine (Nicotine 21 Mg Patch.Td24) 21 mg TRANSDERMA DAILY PRN PRN Reason: smoking cessation Nicotine Polacrilex (Nicotine Polacrilex 2 Mg Gum) 2 mg BUCCAL QID PRN PRN Reason: Nicotine Cravings Last Admin: 09/08/23 17:21 Dose: 2 mg Nicotine Polacrilex (Nicotine Polacrilex 2 Mg Gum) 4 mg BUCCAL Q2H PRN PRN Reason: Nicotine Cravings Prazosin HCl (Prazosin Hcl 1 Mg Capsule) 6 mg PO BEDTIME [facility]; Protocol Last Admin: 09/09/23 20:10 Dose: 6 mg Topiramate (Topiramate 100 Mg Tablet) 200 mg PO BID [facility] Last Admin: 09/10/23 08:37 Dose: 200 mg Trazodone HCl (Trazodone Hcl 50 Mg Tablet) 50 mg PO BEDTIME MRX1 PRN PRN Reason: Insomnia Allergies Allergies Allergy/AdvReac Type Severity Reaction Status Date / Time bee pollen [bee stings] Allergy Anaphylaxis Verified 08/22/23 22:10 bupropion [From Wellbutrin] Allergy Hives Verified 08/22/23 22:10 codeine Allergy Hives Verified 08/22/23 22:10 oxcarbazepine Allergy Hives Verified 08/22/23 22:10 Assessment & Plan Assessment & Plan (1) MDD (major depressive disorder), recurrent severe, without psychosis: Status: Acute Code(s): F33.2 - Major depressive disorder, recurrent severe without psychotic features (2) PTSD (post-traumatic stress disorder): Status: Acute Code(s): F43.10 - Post-traumatic stress disorder, unspecified (3) Opioid use disorder, severe, in sustained remission: Status: Acute Code(s): F11.21 - Opioid dependence, in remission Plan Patient is a 43-year-old female with history of PTSD, depression, opioid dependence in sustained remission on methadone, reportedly bipolar disorder, chronic wounds to b/l lower extremitites, who presents for worsening depression and SI in the face of relational strife at recovery house. Patient reports that she wanted to get off methadone since she found emotionally blunting. However to do so she felt the need to be in a supportive environment and so went to [facility] hoping to find other women there also in recovery he would be supportive. Patient has been sober for year, citing love for her kids and grandkids as stronger than her need for the drug. Patient said she went from a methadone 120 mg down to 0 in one week. At the recovery house she was dope sick, craving using, nauseous, feeling miserable. She said she wanted to use so badly that she felt suicidal and told 1 of the workers that if she left the house she was going to use heroin and take herself out with it. Patient was taken to [facility] ED for safety assessment and restarted on methadone. She had a back on 80 mg and upon return to the house found herself nodding off during groups. Patient said that both the female peers and staff were incredibly derisive, targeting her, making fun of her, being mean, hurtful. Patient could not understand why and began to feel very emotionally hurt, wanting to get high, feeling depressed and again suicidal. Patient thus self presented. -Will continue home medications which patient says she takes consistently and have been helpful; Telehealth Director reviewed for manic behaviors but could not find clear evidence for manic episodes -patient wants to get on Suboxone, saying methadone has caused emotional blunting and that she has been on Suboxone before and found it helpful Hospital course: 09/09 mood a little better, wants to continue with transition from methadone to Suboxone 09/10 less depressed; shared that long-term problems were only for actually 1 day and she wants to return there. Was doing well on current medication regimen prior to this 1 day Plan: CV Q 15 minute checks Continue home medication regimen Will discuss dispo planning Care for chronic wounds to b/l lower extremitites transition from methadone to Suboxone: 09/09: Day 1 suboxone 0.5mg (plus methadone dose) (0.25 of a 2/0.5 film) 09/10: Day 2 suboxone 0.5mg bid (plus methadone dose) (0.25 of a 2/0.5 film) 09/11: Day 3 suboxone 1mg Bid (plus methadone dose) (0.5 of a 2/0.5 film) 09/12: Day 4 suboxone 2mg Bid (plus methadone dose) 09/13 Day 5 suboxone 4mg Bid (plus methadone dose) 09/14 Day 6 suboxone 4mg bid (plus methadone dose) 09/15 Day 7 suboxone 8mg and 4mg (LAST methadone dose) 09/16 Day 8 suboxone 8mg Bid (NO METHADONE ) Patient educated on: diagnosis, medication risk/benefits and therapeutic strategies Informed Consent: understands Reason for continued inpatient stay Substantial Risk for: rapid decompensation Time Spent With Patient Time: Total time managing care of this patient today ____ minutes.
[2023-09-10 18:00] VITALS: BP 110/53; PULSE 92; RESP 18; TEMP 36.3; O2SAT 96
[2023-09-10] MEDS: chlorproMAZINE HCl 25 MG TABLET PO (20:48)
[2023-09-10] MEDS: Mirtazapine 15 MG TABLET PO (20:49)
[2023-09-10] MEDS: Cyclobenzaprine HCl 5 MG TABLET PO (20:49)
[2023-09-10] MEDS: hydrOXYzine HCL 50 MG TABLET PO (20:49)
[2023-09-10] MEDS: Prazosin HCL 1 MG CAPSULE 6 MG PO (20:50)
[2023-09-11 06:00] VITALS: BP 124/64; PULSE 80; RESP 18; O2SAT 99
[2023-09-11] MEDS: Levothyroxine Sodium 50 MCG TABLET PO (06:26)
[2023-09-11] MEDS: Furosemide 20 MG TABLET PO (08:52)
[2023-09-11] MEDS: methADONE HCl 20 MG/2 ML ORAL.CONC 80 MG PO (08:52)
[2023-09-11] MEDS: ARIPiprazole 10 MG TABLET PO (08:52)
[2023-09-11] MEDS: Escitalopram Oxalate 20 MG TABLET PO (08:52)
[2023-09-11] MEDS: Topiramate 100 MG TABLET 200 MG PO ×2 (08:53→20:14)
[2023-09-11] MEDS: cloNIDine HCL 0.1 MG TABLET PO ×2 (08:53→20:13)
[2023-09-11] MEDS: NaPROXEN 500 MG TABLET PO ×2 (08:53→20:14)
[2023-09-11] MEDS: Buprenorphine/Naloxone 2/0.5mg FILM 0.25 FILM SUBLINGUAL (08:55)
[2023-09-11] MEDS: Buprenorphine/Naloxone 2/0.5mg FILM 0.5 FILM SUBLINGUAL (08:55)
--- NOTE | 2023-09-11 14:19 | HO.PSYCHPN ---
Subjective Subjective Date of Service: 09/11/23 Reason For Visit: Depression Subjective Notes: Conditional Voluntary Interim History: Met with patient. Discussed with Nursing. Overall no acute management issues. Has been isolative. Hopeful to return to [facility]. Has been confused regarding methadone switch to Suboxone. Today patient reports feeling that things are getting better as she is less angry and less depressed. Feels safe. Is sleeping excessively. Feels that she would prefer to stay on methadone as her main goal was having methadone dose lowered as she felt to flat and tired on 80 mg. Overall would prefer to stop switch to Suboxone. Will lower scheduled methadone from 80 mg down to 75 mg. outside of this minimal group interactions. Enjoying reading. Medication Compliance: Yes Side effects from medications: No Attending Groups: No Review of Systems Acute medical concerns: No Review of Systems Review of Systems Yes all other systems are reviewed and are negative Mental Status Exam Mental Status Exam Narrative: Pt is alert and oriented; behavior is cooperative, emotional, tearful patient is not in distress; adequate hygiene; mood is described as less depressed and affect constricted; eye contact appropriate; Speech is normal rate, volume and prosody and not pressured; psychomotor retardation present; thought process is goal directed; Thought content is on being poorly treated at [facility], hurt feelings; otherwise pertinent to relevant topics and without any delusional content, paranoid ideations or grandiosity; intermittent passive SI; no HI. There is no evidence of perceptual disturbance. Patients insight and judgment fair Diagnostics Vital Signs (24Hr): Vital Signs - 24 hr 09/10/23 18:00 09/11/23 06:00 Temperature 97.4 F Pulse Rate 92 80 Respiratory Rate 18 18 Blood Pressure 110/53 L 124/64 Pulse Oximetry 96 99 Oxygen Delivery Method Room Air Room Air BMI result Body Mass Index 39.9 Labs 09/07/23 15:16 09/07/23 14:41 Medications Medications Current Medications Acetaminophen (Acetaminophen 325 Mg Tablet) 650 mg PO Q6H PRN PRN Reason: Headache/Pain Mild Scale (1-3) Al Hydroxide/Mg Hydroxide (Magnesium Hydrox/Alum Hydrox 30 Ml Oral.Susp) 30 ml PO Q6H PRN PRN Reason: Heartburn/Nausea Albuterol Sulfate (Albuterol Sulfate 90 Mcg 8 Gm Inhaler) 2 puff INHALE RQ4H PRN PRN Reason: Shortness of Breath Aripiprazole (Aripiprazole 10 Mg Tablet) 10 mg PO DAILY [facility] Last Admin: 09/11/23 08:52 Dose: 10 mg Buprenorphine/Naloxone (Buprenorphine/Naloxone 2/0.5mg Film) 0.25 film SUBLINGUAL BID [facility] Last Admin: 09/11/23 08:55 Dose: 0.25 film Buprenorphine/Naloxone (Buprenorphine/Naloxone 2/0.5mg Film) 0.5 film SUBLINGUAL BID [facility] Stop: 09/11/23 23:30 Last Admin: 09/11/23 08:55 Dose: 0.5 film Buprenorphine/Naloxone (Buprenorphine/Naloxone 2/0.5mg Film) 1 film SUBLINGUAL BID [facility] Stop: 09/12/23 23:30 Buprenorphine/Naloxone (Buprenorphine/Naloxone 4/1 Mg Film) 1 film SUBLINGUAL DAILY@2100 [facility] Stop: 09/15/23 21:01 Buprenorphine/Naloxone (Buprenorphine/Naloxone 8/2 Mg Film) 1 film SUBLINGUAL DAILY [facility] Stop: 09/15/23 11:00 Buprenorphine/Naloxone (Buprenorphine/Naloxone 8/2 Mg Film) 1 film SUBLINGUAL BID [facility] Buprenorphine/Naloxone (Buprenorphine/Naloxone 4/1 Mg Film) 1 film SUBLINGUAL BID [facility] Stop: 09/14/23 23:50 Chlorpromazine HCl (Chlorpromazine Hcl 25 Mg Tablet) 25 mg PO BID PRN PRN Reason: anxiety Last Admin: 09/10/23 20:48 Dose: 25 mg Clonidine HCl (Clonidine Hcl 0.1 Mg Tablet) 0.1 mg PO BID [facility]; Protocol Last Admin: 09/11/23 08:53 Dose: 0.1 mg Cyclobenzaprine HCl (Cyclobenzaprine Hcl 5 Mg Tablet) 5 mg PO TID PRN PRN Reason: Pain (Scale Score 1-3) Last Admin: 09/10/23 20:49 Dose: 5 mg Escitalopram Oxalate (Escitalopram Oxalate 20 Mg Tablet) 20 mg PO DAILY [facility] Last Admin: 09/11/23 08:52 Dose: 20 mg Furosemide (Furosemide 20 Mg Tablet) 20 mg PO DAILY [facility]; Protocol Last Admin: 09/11/23 08:52 Dose: 20 mg Hydroxyzine HCl (Hydroxyzine Hcl 50 Mg Tablet) 50 mg PO TID PRN PRN Reason: anxiety Last Admin: 09/10/23 20:49 Dose: 50 mg Levothyroxine Sodium (Levothyroxine Sodium 50 Mcg Tablet) 50 mcg PO DAILY@0600 [facility] Last Admin: 09/11/23 06:26 Dose: 50 mcg Magnesium Hydroxide (Milk Of Magnesia 30 Ml Oral.Susp) 30 ml PO DAILY PRN PRN Reason: Constipation Methadone HCl (Methadone Hcl 20 Mg/2 Ml Oral.Conc) 80 mg PO DAILY [facility] Stop: 09/15/23 23:00 Last Admin: 09/11/23 08:52 Dose: 80 mg Mirtazapine (Mirtazapine 15 Mg Tablet) 15 mg PO BEDTIME [facility] Last Admin: 09/10/23 20:49 Dose: 15 mg Naproxen (Naproxen 500 Mg Tablet) 500 mg PO BID [facility] Last Admin: 09/11/23 08:53 Dose: 500 mg Nicotine (Nicotine 21 Mg Patch.Td24) 21 mg TRANSDERMA DAILY PRN PRN Reason: smoking cessation Nicotine Polacrilex (Nicotine Polacrilex 2 Mg Gum) 2 mg BUCCAL QID PRN PRN Reason: Nicotine Cravings Last Admin: 09/08/23 17:21 Dose: 2 mg Nicotine Polacrilex (Nicotine Polacrilex 2 Mg Gum) 4 mg BUCCAL Q2H PRN PRN Reason: Nicotine Cravings Prazosin HCl (Prazosin Hcl 1 Mg Capsule) 6 mg PO BEDTIME [facility]; Protocol Last Admin: 09/10/23 20:50 Dose: 6 mg Topiramate (Topiramate 100 Mg Tablet) 200 mg PO BID [facility] Last Admin: 09/11/23 08:53 Dose: 200 mg Trazodone HCl (Trazodone Hcl 50 Mg Tablet) 50 mg PO BEDTIME MRX1 PRN PRN Reason: Insomnia Allergies Allergies Allergy/AdvReac Type Severity Reaction Status Date / Time bee pollen [bee stings] Allergy Anaphylaxis Verified 08/22/23 22:10 bupropion [From Wellbutrin] Allergy Hives Verified 08/22/23 22:10 codeine Allergy Hives Verified 08/22/23 22:10 oxcarbazepine Allergy Hives Verified 08/22/23 22:10 Assessment & Plan Assessment & Plan (1) MDD (major depressive disorder), recurrent severe, without psychosis: Status: Acute Code(s): F33.2 - Major depressive disorder, recurrent severe without psychotic features (2) PTSD (post-traumatic stress disorder): Status: Acute Code(s): F43.10 - Post-traumatic stress disorder, unspecified (3) Opioid use disorder, severe, in sustained remission: Status: Acute Code(s): F11.21 - Opioid dependence, in remission Plan Patient is a 43-year-old female with history of PTSD, depression, opioid dependence in sustained remission on methadone, reportedly bipolar disorder, chronic wounds to b/l lower extremitites, who presents for worsening depression and SI in the face of relational strife at [facility]. Patient reports that she wanted to get off methadone since she found emotionally blunting. However to do so she felt the need to be in a supportive environment and so went to [facility] [place] hoping to find other women there also in recovery he would be supportive. Patient has been sober for year, citing love for her kids and grandkids as stronger than her need for the drug. Patient said she went from a methadone 120 mg down to 0 in one week. At the [facility] she was dope sick, craving using, nauseous, feeling miserable. She said she wanted to use so badly that she felt suicidal and told 1 of the workers that if she left the house she was going to use heroin and take herself out with it. Patient was taken to [facility] ED for safety assessment and restarted on methadone. She had a back on 80 mg and upon return to the house found herself nodding off during groups. Patient said that both the female peers and staff were incredibly derisive, targeting her, making fun of her, being mean, hurtful. Patient could not understand why and began to feel very emotionally hurt, wanting to get high, feeling depressed and again suicidal. Patient thus self presented. -Will continue home medications which patient says she takes consistently and have been helpful; Traffic Technician reviewed for manic behaviors but could not find clear evidence for manic episodes -patient wants to get on Suboxone, saying methadone has caused emotional blunting and that she has been on Suboxone before and found it helpful Hospital course: 09/09 mood a little better, wants to continue with transition from methadone to Suboxone Plan: CV Q 15 minute checks Continue home medication regimen Will discuss dispo planning Care for chronic wounds to b/l lower extremitites transition from methadone to Suboxone: 09/09: Day 1 suboxone 0.5mg (plus methadone dose) (0.25 of a 2/0.5 film) 09/10: Day 2 suboxone 0.5mg bid (plus methadone dose) (0.25 of a 2/0.5 film) 09/11: Day 3 suboxone 1mg Bid (plus methadone dose) (0.5 of a 2/0.5 film) 09/12: Day 4 suboxone 2mg Bid (plus methadone dose) 09/13 Day 5 suboxone 4mg Bid (plus methadone dose) 09/14 Day 6 suboxone 4mg bid (plus methadone dose) 09/15 Day 7 suboxone 8mg and 4mg (LAST methadone dose) 09/16 Day 8 suboxone 8mg Bid (NO METHADONE ) 09/11/23: Feels that she would prefer to stay on methadone as her main goal was having methadone dose lowered as she felt to flat and tired on 80 mg. Overall would prefer to stop switch to Suboxone. Will lower scheduled methadone from 80 mg down to 75 mg. Reason for continued inpatient stay Substantial Risk for: harm to self and inability to function Time Spent With Patient Time: Total time managing care of this patient today ____ minutes.
[2023-09-11 16:05] VITALS: BP 119/66; PULSE 70; RESP 16; TEMP 36.3; O2SAT 99
[2023-09-11] MEDS: Prazosin HCL 1 MG CAPSULE 6 MG PO (20:12)
[2023-09-11] MEDS: Mirtazapine 15 MG TABLET PO (20:14)
[2023-09-12] MEDS: Levothyroxine Sodium 50 MCG TABLET PO (06:03)
[2023-09-12 08:45] VITALS: BP 117/72; PULSE 80; RESP 16; TEMP 36; O2SAT 98
[2023-09-12] MEDS: NaPROXEN 500 MG TABLET PO ×2 (08:58→20:25)
[2023-09-12] MEDS: Furosemide 20 MG TABLET PO (08:58)
[2023-09-12] MEDS: Topiramate 100 MG TABLET 200 MG PO ×2 (08:58→20:25)
[2023-09-12] MEDS: ARIPiprazole 10 MG TABLET PO (08:59)
[2023-09-12] MEDS: cloNIDine HCL 0.1 MG TABLET PO ×2 (08:59→20:24)
[2023-09-12] MEDS: Escitalopram Oxalate 20 MG TABLET PO (08:59)
[2023-09-12] MEDS: methADONE HCl 20 MG/2 ML ORAL.CONC 75 MG PO (08:59)
[2023-09-12] MEDS: Nicotine 21 MG PATCH.TD24 TRANSDERMA (09:02)
--- NOTE | 2023-09-12 12:20 | PC.NURSE ---
3-day notice signed 09/12/23, up on 09/15/23. AASHISH BRAND MD notified.
[2023-09-12] MEDS: hydrOXYzine HCL 50 MG TABLET PO ×2 (13:32→16:55)
[2023-09-12] MEDS: chlorproMAZINE HCl 25 MG TABLET PO ×2 (13:32→16:55)
--- NOTE | 2023-09-12 15:02 | P.PNPSI_ITS ---
Subjective Subjective Date of Service: 09/12/23 Reason For Visit: Depression Subjective Notes: Hitchcock Warning and 3 Day (Expires 09/15) Interim History: Met with patient. Discussed with Nursing. Overall no acute management issues. Has been isolative. Hopeful to return to [facility]. Jeremiah positive methdaone lowered to 75mg and no suboxone cross switch. Continues to feel less depressed, less irritable. Safe. Eager to return to [facility]. Plans on submitting her three-day notice and hitchcock warning given. Medication Compliance: Yes Side effects from medications: No Attending Groups: Intermittent Review of Systems Acute medical concerns: No Review of Systems Review of Systems Yes all other systems are reviewed and are negative Mental Status Exam Mental Status Exam Narrative: Pt is alert and oriented; behavior is cooperative, not in distress; adequate hygiene; mood is described as less depressed and affect constricted; eye contact appropriate; Speech is normal rate, volume and prosody and not pressured; psychomotor retardation present; thought process is goal directed; Thought content is on being poorly treated at senior care, hurt feelings; otherwise pertinent to relevant topics and without any delusional content, paranoid ideations or grandiosity; Denies SI; no HI. There is no evidence of perceptual disturbance. Patients insight and judgment fair Diagnostics Vital Signs (24Hr): Vital Signs - 24 hr 09/11/23 16:05 09/12/23 08:45 Temperature 97.4 F 96.8 F Pulse Rate 70 80 Respiratory Rate 16 16 Blood Pressure 119/66 117/72 Pulse Oximetry 99 98 Oxygen Delivery Method Room Air Room Air BMI result Body Mass Index 39.9 Labs 09/07/23 15:16 09/07/23 14:41 Medications Medications Current Medications Acetaminophen (Acetaminophen 325 Mg Tablet) 650 mg PO Q6H PRN PRN Reason: Headache/Pain Mild Scale (1-3) Al Hydroxide/Mg Hydroxide (Magnesium Hydrox/Alum Hydrox 30 Ml Oral.Susp) 30 ml PO Q6H PRN PRN Reason: Heartburn/Nausea Albuterol Sulfate (Albuterol Sulfate 90 Mcg 8 Gm Inhaler) 2 puff INHALE RQ4H PRN PRN Reason: Shortness of Breath Aripiprazole (Aripiprazole 10 Mg Tablet) 10 mg PO DAILY ELSY Last Admin: 09/12/23 08:59 Dose: 10 mg Chlorpromazine HCl (Chlorpromazine Hcl 25 Mg Tablet) 25 mg PO BID PRN PRN Reason: anxiety Last Admin: 09/12/23 13:32 Dose: 25 mg Clonidine HCl (Clonidine Hcl 0.1 Mg Tablet) 0.1 mg PO BID [facility]; Protocol Last Admin: 09/12/23 08:59 Dose: 0.1 mg Cyclobenzaprine HCl (Cyclobenzaprine Hcl 5 Mg Tablet) 5 mg PO TID PRN PRN Reason: Pain (Scale Score 1-3) Last Admin: 09/10/23 20:49 Dose: 5 mg Escitalopram Oxalate (Escitalopram Oxalate 20 Mg Tablet) 20 mg PO DAILY [facility] Last Admin: 09/12/23 08:59 Dose: 20 mg Furosemide (Furosemide 20 Mg Tablet) 20 mg PO DAILY [facility]; Protocol Last Admin: 09/12/23 08:58 Dose: 20 mg Hydroxyzine HCl (Hydroxyzine Hcl 50 Mg Tablet) 50 mg PO TID PRN PRN Reason: anxiety Last Admin: 09/12/23 13:32 Dose: 50 mg Levothyroxine Sodium (Levothyroxine Sodium 50 Mcg Tablet) 50 mcg PO DAILY@0600 [facility] Last Admin: 09/12/23 06:03 Dose: 50 mcg Magnesium Hydroxide (Milk Of Magnesia 30 Ml Oral.Susp) 30 ml PO DAILY PRN PRN Reason: Constipation Methadone HCl (Methadone Hcl 20 Mg/2 Ml Oral.Conc) 75 mg PO DAILY [facility] Stop: 09/15/23 23:00 Last Admin: 09/12/23 08:59 Dose: 75 mg Mirtazapine (Mirtazapine 15 Mg Tablet) 15 mg PO BEDTIME [facility] Last Admin: 09/11/23 20:14 Dose: 15 mg Naproxen (Naproxen 500 Mg Tablet) 500 mg PO BID [facility] Last Admin: 09/12/23 08:58 Dose: 500 mg Nicotine (Nicotine 21 Mg Patch.Td24) 21 mg TRANSDERMA DAILY PRN PRN Reason: smoking cessation Last Admin: 09/12/23 09:02 Dose: 21 mg Nicotine Polacrilex (Nicotine Polacrilex 2 Mg Gum) 2 mg BUCCAL QID PRN PRN Reason: Nicotine Cravings Last Admin: 09/08/23 17:21 Dose: 2 mg Nicotine Polacrilex (Nicotine Polacrilex 2 Mg Gum) 4 mg BUCCAL Q2H PRN PRN Reason: Nicotine Cravings Prazosin HCl (Prazosin Hcl 1 Mg Capsule) 6 mg PO BEDTIME [facility]; Protocol Last Admin: 09/11/23 20:12 Dose: 6 mg Topiramate (Topiramate 100 Mg Tablet) 200 mg PO BID [facility] Last Admin: 09/12/23 08:58 Dose: 200 mg Trazodone HCl (Trazodone Hcl 50 Mg Tablet) 50 mg PO BEDTIME MRX1 PRN PRN Reason: Insomnia Allergies Allergies Allergy/AdvReac Type Severity Reaction Status Date / Time bee pollen [bee stings] Allergy Anaphylaxis Verified 08/22/23 22:10 bupropion [From Wellbutrin] Allergy Hives Verified 08/22/23 22:10 codeine Allergy Hives Verified 08/22/23 22:10 oxcarbazepine Allergy Hives Verified 08/22/23 22:10 Assessment & Plan Assessment & Plan (1) MDD (major depressive disorder), recurrent severe, without psychosis: Status: Acute Code(s): F33.2 - Major depressive disorder, recurrent severe without psychotic features (2) PTSD (post-traumatic stress disorder): Status: Acute Code(s): F43.10 - Post-traumatic stress disorder, unspecified (3) Opioid use disorder, severe, in sustained remission: Status: Acute Code(s): F11.21 - Opioid dependence, in remission Plan Patient is a 43-year-old female with history of PTSD, depression, opioid dependence in sustained remission on methadone, reportedly bipolar disorder, chronic wounds to b/l lower extremitites, who presents for worsening depression and SI in the face of relational strife at [facility]. Patient reports that she wanted to get off methadone since she found emotionally blunting. However to do so she felt the need to be in a supportive environment and so went to [facility] hoping to find other women there also in recovery he would be supportive. Patient has been sober for year, citing love for her kids and grandkids as stronger than her need for the drug. Patient said she went from a methadone 120 mg down to 0 in one week. At the [facility] house she was dope sick, craving using, nauseous, feeling miserable. She said she wanted to use so badly that she felt suicidal and told 1 of the workers that if she left the house she was going to use heroin and take herself out with it. Patient was taken to [facility] ED for safety assessment and restarted on methadone. She had a back on 80 mg and upon return to the house found herself nodding off during groups. Patient said that both the female peers and staff were incredibly derisive, targeting her, making fun of her, being mean, hurtful. Patient could not understand why and began to feel very emotionally hurt, wanting to get high, feeling depressed and again suicidal. Patient thus self presented. -Will continue home medications which patient says she takes consistently and have been helpful; Chain Offbearer reviewed for manic behaviors but could not find clear evidence for manic episodes -patient wants to get on Suboxone, saying methadone has caused emotional blunting and that she has been on Suboxone before and found it helpful Hospital course: 09/09 mood a little better, wants to continue with transition from methadone to Suboxone Plan: CV Q 15 minute checks Continue home medication regimen Will discuss dispo planning Care for chronic wounds to b/l lower extremitites transition from methadone to Suboxone: 09/09: Day 1 suboxone 0.5mg (plus methadone dose) (0.25 of a 2/0.5 film) 09/10: Day 2 suboxone 0.5mg bid (plus methadone dose) (0.25 of a 2/0.5 film) 09/11: Day 3 suboxone 1mg Bid (plus methadone dose) (0.5 of a 2/0.5 film) 09/12: Day 4 suboxone 2mg Bid (plus methadone dose) 09/13 Day 5 suboxone 4mg Bid (plus methadone dose) 09/14 Day 6 suboxone 4mg bid (plus methadone dose) 09/15 Day 7 suboxone 8mg and 4mg (LAST methadone dose) 09/16 Day 8 suboxone 8mg Bid (NO METHADONE ) 09/11/23: Feels that she would prefer to stay on methadone as her main goal was having methadone dose lowered as she felt to flat and tired on 80 mg. Overall would prefer to stop switch to Suboxone. Will lower scheduled methadone from 80 mg down to 75 mg. 09/12: no changes. 3 day notice Reason for continued inpatient stay Substantial Risk for: rapid decompensation Time Spent With Patient Time: Total time managing care of this patient today ____ minutes.
[2023-09-12 18:00] VITALS: BP 120/77; PULSE 75; TEMP 36.4; O2SAT 96
[2023-09-12] MEDS: Prazosin HCL 1 MG CAPSULE 6 MG PO (20:24)
[2023-09-12] MEDS: traZODone HCL 50 MG TABLET PO (20:25)
[2023-09-12] MEDS: Mirtazapine 15 MG TABLET PO (20:26)
[2023-09-13] MEDS: Levothyroxine Sodium 50 MCG TABLET PO (06:12)
[2023-09-13 08:00] VITALS: BP 109/60; PULSE 88; RESP 16; TEMP 36.1; O2SAT 98
--- NOTE | 2023-09-13 08:45 | P.PNPSI_ITS ---
Subjective Subjective Date of Service: 09/13/23 Reason For Visit: Depression Interim History: Met with patient; discussed with team; reviewed progress notes Patient says she is feeling much better; she denies she was ever feeling suicidal and that she did really think she needed in in-patient unit but rather was hoping to go to respite. Over weekend, patient decided she wanted to stay on methadone rather than make switch to Suboxone; patient anxious about getting COVID and patient submitted 3 day notice wanting to discharge. Discussed that she cannot go back to program so patient is making plans to go back to stay [place] Examine bilateral lower limb chronic wounds; 1 of them looks weepy; ordered wound consult and hospitalist Mental Status Exam Mental Status Exam Narrative: Pt is alert and oriented; behavior is cooperative, not in distress; adequate hygiene; mood is described as good and affect congruent, brighter; eye contact appropriate; Speech is normal rate, volume and prosody and not pressured; no psychomotor retardation present; thought process is goal directed; Thought content is on discharge; feeling better; otherwise pertinent to relevant topics and without any delusional content, paranoid ideations or grandiosity; Denies SI; no HI. There is no evidence of perceptual disturbance. Patients insight and judgment fair Diagnostics Vital Signs (24Hr): Vital Signs - 24 hr 09/12/23 18:00 Temperature 97.6 F Pulse Rate 75 Blood Pressure 120/77 Pulse Oximetry 96 Oxygen Delivery Method Room Air BMI result Body Mass Index 39.9 Labs 09/07/23 15:16 09/07/23 14:41 Medications Medications Current Medications Acetaminophen (Acetaminophen 325 Mg Tablet) 650 mg PO Q6H PRN PRN Reason: Headache/Pain Mild Scale (1-3) Al Hydroxide/Mg Hydroxide (Magnesium Hydrox/Alum Hydrox 30 Ml Oral.Susp) 30 ml PO Q6H PRN PRN Reason: Heartburn/Nausea Albuterol Sulfate (Albuterol Sulfate 90 Mcg 8 Gm Inhaler) 2 puff INHALE RQ4H PRN PRN Reason: Shortness of Breath Aripiprazole (Aripiprazole 10 Mg Tablet) 10 mg PO DAILY ELSY Last Admin: 09/12/23 08:59 Dose: 10 mg Chlorpromazine HCl (Chlorpromazine Hcl 25 Mg Tablet) 25 mg PO BID PRN PRN Reason: anxiety Last Admin: 09/12/23 16:55 Dose: 25 mg Clonidine HCl (Clonidine Hcl 0.1 Mg Tablet) 0.1 mg PO BID [facility]; Protocol Last Admin: 09/12/23 20:24 Dose: 0.1 mg Cyclobenzaprine HCl (Cyclobenzaprine Hcl 5 Mg Tablet) 5 mg PO TID PRN PRN Reason: Pain (Scale Score 1-3) Last Admin: 09/10/23 20:49 Dose: 5 mg Escitalopram Oxalate (Escitalopram Oxalate 20 Mg Tablet) 20 mg PO DAILY [facility] Last Admin: 09/12/23 08:59 Dose: 20 mg Furosemide (Furosemide 20 Mg Tablet) 20 mg PO DAILY ELSY; Protocol Last Admin: 09/12/23 08:58 Dose: 20 mg Hydroxyzine HCl (Hydroxyzine Hcl 50 Mg Tablet) 50 mg PO TID PRN PRN Reason: anxiety Last Admin: 09/12/23 16:55 Dose: 50 mg Levothyroxine Sodium (Levothyroxine Sodium 50 Mcg Tablet) 50 mcg PO DAILY@0600 [facility] Last Admin: 09/13/23 06:12 Dose: 50 mcg Magnesium Hydroxide (Milk Of Magnesia 30 Ml Oral.Susp) 30 ml PO DAILY PRN PRN Reason: Constipation Methadone HCl (Methadone Hcl 20 Mg/2 Ml Oral.Conc) 75 mg PO DAILY [facility] Stop: 09/15/23 23:00 Last Admin: 09/12/23 08:59 Dose: 75 mg Mirtazapine (Mirtazapine 15 Mg Tablet) 15 mg PO BEDTIME [facility] Last Admin: 09/12/23 20:26 Dose: 15 mg Naproxen (Naproxen 500 Mg Tablet) 500 mg PO BID [facility] Last Admin: 09/12/23 20:25 Dose: 500 mg Nicotine (Nicotine 21 Mg Patch.Td24) 21 mg TRANSDERMA DAILY PRN PRN Reason: smoking cessation Last Admin: 09/12/23 09:02 Dose: 21 mg Nicotine Polacrilex (Nicotine Polacrilex 2 Mg Gum) 2 mg BUCCAL QID PRN PRN Reason: Nicotine Cravings Last Admin: 09/08/23 17:21 Dose: 2 mg Nicotine Polacrilex (Nicotine Polacrilex 2 Mg Gum) 4 mg BUCCAL Q2H PRN PRN Reason: Nicotine Cravings Prazosin HCl (Prazosin Hcl 1 Mg Capsule) 6 mg PO BEDTIME [facility]; Protocol Last Admin: 09/12/23 20:24 Dose: 6 mg Topiramate (Topiramate 100 Mg Tablet) 200 mg PO BID ELSY Last Admin: 09/12/23 20:25 Dose: 200 mg Trazodone HCl (Trazodone Hcl 50 Mg Tablet) 50 mg PO BEDTIME MRX1 PRN PRN Reason: Insomnia Last Admin: 09/12/23 20:25 Dose: 50 mg Allergies Allergies Allergy/AdvReac Type Severity Reaction Status Date / Time bee pollen [bee stings] Allergy Anaphylaxis Verified 08/22/23 22:10 bupropion [From Wellbutrin] Allergy Hives Verified 08/22/23 22:10 codeine Allergy Hives Verified 08/22/23 22:10 oxcarbazepine Allergy Hives Verified 08/22/23 22:10 Assessment & Plan Assessment & Plan (1) MDD (major depressive disorder), recurrent severe, without psychosis: Status: Acute Code(s): F33.2 - Major depressive disorder, recurrent severe without psychotic features (2) PTSD (post-traumatic stress disorder): Status: Acute Code(s): F43.10 - Post-traumatic stress disorder, unspecified (3) Opioid use disorder, severe, in sustained remission: Status: Acute Code(s): F11.21 - Opioid dependence, in remission Plan Patient is a 43-year-old female with history of PTSD, depression, opioid dependence in sustained remission on methadone, reportedly bipolar disorder, chronic wounds to b/l lower extremitites, who presents for worsening depression and SI in the face of relational strife at [facility]. Patient reports that she wanted to get off methadone since she found emotionally blunting. However to do so she felt the need to be in a supportive environment and so went to [facility] hoping to find other women there also in recovery he would be supportive. Patient has been sober for year, citing love for her kids and grandkids as stronger than her need for the drug. Patient said she went from a methadone 120 mg down to 0 in one week. At the recovery house she was dope sick, craving using, nauseous, feeling miserable. She said she wanted to use so badly that she felt suicidal and told 1 of the workers that if she left the house she was going to use heroin and take herself out with it. Patient was taken to [facility] ED for safety assessment and restarted on methadone. She had a back on 80 mg and upon return to the house found herself nodding off during groups. Patient said that both the female peers and staff were incredibly derisive, targeting her, making fun of her, being mean, hurtful. Patient could not understand why and began to feel very emotionally hurt, wanting to get high, feeling depressed and again suicidal. Patient thus self presented. -Will continue home medications which patient says she takes consistently and have been helpful; Store Planner reviewed for manic behaviors but could not find clear evidence for manic episodes -patient wants to get on Suboxone, saying methadone has caused emotional blunting and that she has been on Suboxone before and found it helpful Hospital course: 09/09 mood a little better, wants to continue with transition from methadone to Suboxone 09/10 less depressed; shared that halfway problems were only for actually 1 day and she wants to return there. Was doing well on current medication regimen prior to this 1 day 09/13 denies depression; denies any SI and says she never had any in the 1st place. Looking to discharge soon -wants to remain on methadone -ordering wound consult Plan: Three day Q 15 minute checks Continue home medication regimen Will discuss dispo planning Care for chronic wounds to b/l lower extremitites Patient educated on: diagnosis, medication risk/benefits, substance abuse and medical condition Informed Consent: understands Reason for continued inpatient stay Substantial Risk for: stable for discharge Time Spent With Patient Time: Total time managing care of this patient today ____ minutes.
[2023-09-13] MEDS: cloNIDine HCL 0.1 MG TABLET PO ×2 (09:13→20:27)
[2023-09-13] MEDS: Escitalopram Oxalate 20 MG TABLET PO (09:13)
[2023-09-13] MEDS: Topiramate 100 MG TABLET 200 MG PO ×2 (09:13→20:27)
[2023-09-13] MEDS: Furosemide 20 MG TABLET PO (09:13)
[2023-09-13] MEDS: NaPROXEN 500 MG TABLET PO ×2 (09:13→20:26)
[2023-09-13] MEDS: ARIPiprazole 10 MG TABLET PO (09:13)
[2023-09-13] MEDS: methADONE HCl 20 MG/2 ML ORAL.CONC 75 MG PO (09:14)
[2023-09-13] MEDS: hydrOXYzine HCL 50 MG TABLET PO (16:46)
[2023-09-13] MEDS: chlorproMAZINE HCl 25 MG TABLET PO ×2 (16:46→20:41)
[2023-09-13 18:00] VITALS: BP 117/71; PULSE 80; RESP 18; TEMP 36.1; O2SAT 97
--- NOTE | 2023-09-13 18:36 | P.EN_ITS ---
Event Note Date of Service: 09/13/23 Event Note: Pt with chronic venous stasis and chronic venous ulcers admitted to [address] consult placed to hospitalist service for evaluation of chronic leg wounds which appear worse per patient and psychiatrist. Pt tells me she has not seen any one from wound care and that her wounds have been open to air. She reports chronic pain the the BLE. Denies purulent drainage. On exam, put has multiple shallow venous ulcers to the BLE, with the largest on the distal rLE. Exposed granulation tissue, no slough or eschar. No surrounding erythema or warmth. No purulent drainage. She is afebrile. She has thickening of the skin with a dusky pink coloring over the distal aspect of the lower legs bilaterally consistent with chronic venous stasis. The patient's wounds are clean and not infected. The wounds should be dressed and she needs evaluation by service order dispatcher. Order placed. Recommend dressings with xeroform and wrapped in gauze. Please discuss further wound recommendation with service order dispatcher. Thank you for allowing me to participate in this consult. Signing off at this time. Please do not hesitate to call for further questions or for any acute medical issues. Time Spent With Patient Time: Total time managing care of this patient today ____ minutes.
[2023-09-13] MEDS: Mirtazapine 15 MG TABLET PO (20:27)
[2023-09-13] MEDS: Prazosin HCL 1 MG CAPSULE 6 MG PO (20:28)
[2023-09-14] MEDS: Levothyroxine Sodium 50 MCG TABLET PO (06:12)
[2023-09-14 08:25] VITALS: BP 113/72; PULSE 84; TEMP 36; O2SAT 97
[2023-09-14] MEDS: cloNIDine HCL 0.1 MG TABLET PO (09:19)
[2023-09-14] MEDS: ARIPiprazole 10 MG TABLET PO (09:19)
[2023-09-14] MEDS: NaPROXEN 500 MG TABLET PO (09:20)
[2023-09-14] MEDS: Escitalopram Oxalate 20 MG TABLET PO (09:20)
[2023-09-14] MEDS: Furosemide 20 MG TABLET PO (09:24)
[2023-09-14] MEDS: Topiramate 100 MG TABLET 200 MG PO (09:24)
[2023-09-14] MEDS: methADONE HCl 20 MG/2 ML ORAL.CONC 75 MG PO (09:28)
--- NOTE | 2023-09-14 10:40 | PM.PSYDC ---
DS: Providers Provider Date of Service: 09/14/23 Date of admission: 09/08/23 19:00 Date of discharge: 09/14/23 Primary care physician: Sarika Bear MD Attending physician on admission: Gordon Calderon Consults: 09/13/23 11:42 Consult to Wound Care Routine Reason for consultation: open lesions b/l lower limbs 09/13/23 14:03 Consult to Hospitalist Routine Comment: Consulting Provider: Hospitalist Reason For Exam: b/l lower leg lesions, chronic but worsening Attending physician on discharge: Gordon Calderon DS: Diagnosis Discharge Diagnosis (1) MDD (major depressive disorder), recurrent severe, without psychosis: Status: Acute (2) PTSD (post-traumatic stress disorder): Status: Acute (3) Opioid use disorder, severe, in sustained remission: Status: Acute DS: Medications Discharge Medications Home Medications: Home Medications Medication Instructions Recorded Confirmed aripiprazole 10 mg tablet 10 mg PO DAILY 09/07/23 09/07/23 chlorpromazine 25 mg tablet 25 mg PO BID PRN anxiety 09/07/23 09/07/23 clonidine HCl 0.1 mg tablet 0.1 mg PO BID 09/07/23 09/07/23 cyclobenzaprine 5 mg tablet 5 mg PO TID PRN Pain (Scale Score 09/07/23 09/07/23 1-3) escitalopram oxalate 20 mg tablet 20 mg PO DAILY 09/07/23 09/07/23 furosemide 20 mg tablet 20 mg PO DAILY 09/07/23 09/07/23 hydroxyzine pamoate 50 mg capsule 50 mg PO TID PRN anxiety 09/07/23 09/07/23 levothyroxine 50 mcg tablet 50 mcg PO DAILY@0600 09/07/23 09/08/23 mirtazapine 15 mg tablet 15 mg PO BEDTIME 09/07/23 09/07/23 naproxen 500 mg tablet 500 mg PO BID 09/07/23 09/07/23 prazosin 2 mg capsule 6 mg PO BEDTIME 09/07/23 09/08/23 topiramate 200 mg tablet 200 mg PO BID 09/07/23 09/07/23 Previous Rx's Medication Instructions Recorded methadone 10 mg/mL oral 75 mg (7.5 mL) PO DAILY #0 mL 09/14/23 concentrate (Methadose) Mental Status Exam Mental Status Exam Narrative: Pt is alert and oriented; behavior is cooperative, not in distress; adequate hygiene; mood is described as good and affect congruent, brighter; eye contact appropriate; Speech is normal rate, volume and prosody and not pressured; no psychomotor retardation present; thought process is goal directed; Thought content is on discharge; feeling better; otherwise pertinent to relevant topics and without any delusional content, paranoid ideations or grandiosity; Denies SI; no HI. There is no evidence of perceptual disturbance. Patients insight and judgment fair Data Data Completed and Pending Completed studies during hospitalization [Text1]: 09/07/23 09/07/23 09/07/23 13:39 13:40 14:41 WBC Cancelled RBC Cancelled Hgb Cancelled Hct Cancelled MCV Cancelled MCH Cancelled MCHC Cancelled RDW Cancelled Plt Count Cancelled MPV Cancelled Immature Gran % (Auto) Cancelled Neut % (Auto) Cancelled Lymph % (Auto) Cancelled [place] % (Auto) Cancelled Eos % (Auto) Cancelled Baso % (Auto) Cancelled Lymph # (Auto) Cancelled [place] # (Auto) Cancelled Eos # (Auto) Cancelled Baso # (Auto) Cancelled Abs Immat Gran (auto) Cancelled Absolute Neuts (auto) Cancelled Absolute Nucleated RBC Cancelled Nucleated RBC % (auto) Cancelled Sodium 138 Potassium 3.8 Chloride 110 H Carbon Dioxide 22 Anion Gap 10 L BUN 15 Creatinine 0.88 Estim Creat Clear Calc 100.0 Estimated GFR > 60 Random Glucose 111 Calcium 8.1 L D Total Bilirubin 0.3 AST 59 H ALT 58 H Alkaline Phosphatase 114 Total Protein 7.5 Albumin 3.6 Urine Color Dark Yellow Urine Appearance Cloudy Urine pH 6.0 Ur Specific [place] >= 1.030 H Urine Protein 30 (1+) H Urine Glucose (UA) Negative Urine Ketones Negative Urine Blood Large (3+) H Urine Nitrite Negative Ur Leukocyte Esterase Small (1+) H Urine RBC >20 H Urine WBC 21-50 H Ur Squamous Epith Cells 11-20 Urine Bacteria None Seen Hyaline Casts 0-2 Urine Test NEGATIVE Salicylates < 5.0 L Urine Opiates Screen Not Detected Urine Fentanyl Screen Not Detected Acetaminophen < 3 Ur Barbiturates Screen Not Detected Ur Phencyclidine Scrn Not Detected Ur Amphetamines Screen Not Detected U Benzodiazepines Scrn Not Detected Urine Cocaine Screen Not Detected U Marijuana (THC) Screen Not Detected Ethyl Alcohol < 10 COVID-19 ([facility]) COVID-19 Clin Com 09/07/23 09/08/23 15:16 14:49 WBC 6.0 RBC 4.25 Hgb 11.0 L Hct 35.4 L MCV 83.3 MCH 25.9 L MCHC 31.1 RDW 16.6 H Plt Count 260 MPV 10.2 Immature Gran % (Auto) 0.3 Neut % (Auto) 53.4 Lymph % (Auto) 33.8 [place] % (Auto) 10.0 Eos % (Auto) 2.2 Baso % (Auto) 0.3 Lymph # (Auto) 2.0 [place] # (Auto) 0.6 Eos # (Auto) 0.1 Baso # (Auto) 0.0 Abs Immat Gran (auto) 0.02 Absolute Neuts (auto) 3.2 Absolute Nucleated RBC 0.000 Nucleated RBC % (auto) 0.0 Sodium Potassium Chloride Carbon Dioxide Anion Gap BUN Creatinine Estim Creat Clear Calc Estimated GFR Random Glucose Calcium Total Bilirubin AST ALT Alkaline Phosphatase Total Protein Albumin Urine Color Urine Appearance Urine pH Ur Specific [place] Urine Protein Urine Glucose (UA) Urine Ketones Urine Blood Urine Nitrite Ur Leukocyte Esterase Urine RBC Urine WBC Ur Squamous Epith Cells Urine Bacteria Hyaline Casts Urine Test Salicylates Urine Opiates Screen Urine Fentanyl Screen Acetaminophen Ur Barbiturates Screen Ur Phencyclidine Scrn Ur Amphetamines Screen U Benzodiazepines Scrn Urine Cocaine Screen U Marijuana (THC) Screen Ethyl Alcohol COVID-19 ([facility]) Negative COVID-19 Clin Com See Note 09/07/23 Unknown Urine clean catch - Urine freeman top Urine Culture - Final DS: Summary Hospital Course Hospital Course: Patient is a 43-year-old female with history of PTSD, depression, opioid dependence in sustained remission on methadone, reportedly bipolar disorder, chronic wounds to b/l lower extremitites, who presents for worsening depression and SI in the face of relational strife at recovery house. Patient reports that she wanted to get off methadone since she found emotionally blunting. However to do so she felt the need to be in a supportive environment and so went to [facility] hoping to find other women there also in recovery he would be supportive. Patient has been sober for year, citing love for her kids and grandkids as stronger than her need for the drug. Patient said she went from a methadone 120 mg down to 0 in one week. At the recovery house she was dope sick, craving using, nauseous, feeling miserable. She said she wanted to use so badly that she felt suicidal and told 1 of the workers that if she left the house she was going to use heroin and take herself out with it. Patient was taken to [facility] ED for safety assessment and restarted on methadone. She had a back on 80 mg and upon return to the house found herself nodding off during groups. Patient said that both the female peers and staff were incredibly derisive, targeting her, making fun of her, being mean, hurtful. Patient could not understand why and began to feel very emotionally hurt, wanting to get high, feeling depressed and again suicidal. Patient thus self presented. Hospital course: On admission patient was emotional; she said she had some suicidal feelings but no intention, plans; patient wanted to remain on home medications. Initially she wanted to switch from methadone to Suboxone which was clearly discussed and transition initiated; however patient ended up deciding just remain on methadone but at a little bit lower dose. Patient's mood quickly improved and affect noticeably brighter. She discussed how this incident actually took place on only 1 day when she was feeling verbally and emotionally attacked by her peers which triggered her PTSD. Patient felt like she had returned to her regular self and signed a 3 day notice, looking to discharge. She denied any SI at all and even said she never really felt suicidal in the 1st place, just upset. Patient remained in good behavioral and impulse control throughout her time in the unit, appropriate with peers and staff. Patient had been [facility]; when she found out this was not possible, she may plans with her head loft worker to get her into another program, a stipulation of a court order. Patient asked for discharge with plans to go to [facility], set up by her head loft worker and with their staff to get into a [facility] program. Patient said she did not need any refills on medications, having adequate supply and that she would get her appointments through [facility]. Patient was in a good mood, no SI, tolerating medications well, eating and sleeping well and appropriate to continue treatment in the community. Despite this moment of emotional dysregulation, she remains sober and demonstrates good judgment in her ability to reach out for help when needed. While she remains vulnerable to relapse and mood dysregulation, this is a chronic issue of which she is well aware and continues to work out with her outpatient supports. Patient is not in imminent risk for harm to self or others and her request for discharge honored. regarding chronic b/l leg wounds, pt was seen by both hospitalist and wound care Time spent discussing smoking cessation with patient: 3 to 10 minutes Status at Discharge Functional status at discharge: independent ambulation Overall status at discharge: patient is back to baseline Time Spent with Patient Time attestation: Total time managing care of this patient today ____ minutes. Time spent: Greater than 30 minutes Discharge Plan Discharge Anticipated Discharge Date/Time: 09/14/23 11:30 Patient Disposition: Long-Term Discharge Diagnosis: PTSD, chronic with acute exacerbation Referrals: Sarika Bear MD [Primary Care Provider] - 1 Week (via zoom . called left a message to call us back . for d/c appointment) Discharge Medications: New methadone [Methadose] 10 mg/mL Concentrate 75 mg PO DAILY Qty: 0 0RF Rx Instructions: Partial Fill upon patient request. Continued clonidine HCl 0.1 mg tablet 0.1 mg PO BID hydroxyzine pamoate 50 mg capsule 50 mg PO TID PRN (Reason: anxiety ) levothyroxine 50 mcg tablet 50 mcg PO DAILY@0600 chlorpromazine 25 mg tablet 25 mg PO BID PRN (Reason: anxiety ) topiramate 200 mg tablet 200 mg PO BID furosemide 20 mg tablet 20 mg PO DAILY mirtazapine 15 mg tablet 15 mg PO BEDTIME prazosin 2 mg capsule 6 mg PO BEDTIME naproxen 500 mg tablet 500 mg PO BID escitalopram oxalate 20 mg tablet 20 mg PO DAILY aripiprazole 10 mg tablet 10 mg PO DAILY cyclobenzaprine 5 mg tablet 5 mg PO TID PRN (Reason: Pain (Scale Score 1-3)) Discontinued Methadone Intensol 80 mg PO DAILY Discharge Orders: Discharge Order (Routine); Ordered 09/14/23 Ordered By: Gordon Calderon Diet: Regular diet Activity on Discharge: As tolerated Stand Alone Forms: Patient Portal Discharge page Care Plan Goals: Maintain mood and safe behaviors Take medications as prescribed Continue to pursue sobriety Practice coping skills Continue with outpatient providers and reach out to them as needed Health Concerns: Mood stability and behaviors Chronic b/l lower limb wounds Plan of Treatment: Follow up with your PCP, psychiatric provider and other outpatient providers regarding above concerns Take medications as prescribed Assessment: Risk assessment at time of discharge:? Patient was interviewed prior to discharge and found to be fully oriented and without any SI or HI. Patient has improved insight and judgment and wants to continue treatment. Patient is not in imminent risk of harm to self or others and has a safety plan that includes presenting to the closest ER or calling 911 if feeling unsafe.? Patient has been observed closely by nursing and unit staff throughout admission; patient has not engaged in any behaviors that suggest dangerousness to self or others and has demonstrated appropriate behaviors and impulse control
[2023-09-14] MEDS: Naloxone HCl Nasal TAKE HOME 4 MG SPRAY 8 MG NOSTRILALT (10:45)
--- NOTE | 2023-09-14 13:02 | HO.WOUND ---
Wound Consult: Initial 43yr old female admitted to [facility] on?09/08/23 19:00 - See progress notes and H&P for detailed history. Arrival to inpatient psych unit pt was agreeable to my consultation, assessment and photo documentation. She reports she used to treat at a wound clinic in [place] but has since just been using dry dressings. She is agreeable to follow up with local wound clinic. She reports in the past they attempted to determine etiology but were unable - she reports she has had these wounds for two years. I would recommend [facility] for continued treatment and etiology. Pt reports she has difficulty obtaining some supplies for wound care - we discussed [facility] - she is familiar with the program and reports understanding. Left Leg Left Leg Right Leg Right Leg and heel with Fissure Bilateral Lower Legs Etiology: Suspect Venous wounds Measurements: Right Leg Anterior wound: 4.5cm x 12cm x 0.2cm, Posterior Lecm x 2cm x 0.1cm Left leg scattered open lesions in various stages of healing some dry some moist - all measuring less than 3cm Wound Bed: red moist full thickness tissue loss with thin adherent yellow slough Drainage / Odor: yellow garnica drainage noted on dressing when removed - no odor Edges: ? epibole and irregular Cris wound: ? macerated - hemosiderin staining, firm swelling and tenderness Bilateral Heels are noted for thick dry cracked heels - two large fissures noted. Vaseline applied - discussed with pt benefits of creams containing Urea sold over the counter to apply to cracked fissures on heels. Goals of Treatment: ? Moisture management Recommendations: 1. Provide adequate and supplemental nutrition. 2. Biltaeral Lower Legs - Elevate Lower Legs - Float heels off of surface of bed when in bed. Cleanse with NS, Pat dry. Apply Vaseline to lower legs, cover dry shallow wounds with double layer xeroform, cover moist wounds with cut to size Aliginate such as Durafiber AG, cover with ABD pad and Elastic Netting to secure pads in place. Change every other day. Recommend follow up Outpatient Wound Clinic at time of discharge. 3. Heels - Fissure / dry cracked heels - Cleanse with routine cleasning, Apply Vaseline to heels and cover with socks. At time of discharge recommend use of creams containing Urea sold over the counter to apply to cracked fissures on heels. Re-consult wound care Nurse for wound deterioration or wound changes.
== END 2023-09-14 13:40 | disposition home or self-care (01) | DRG 751 ==
LOC: HO.ED 19:27 → HO.PM5 09-08 19:11
PROVIDERS: Emergency Medicine Emergency Medical Services; Physician Assistant; Admitting Provider Psychiatry & Neurology Psychiatry; Emergency Provider Internal Medicine; PCP Family Medicine; Visit Provider Psychiatry & Neurology Psychiatry
DX: F33.2 Major depressive disorder, recurrent severe without psychotic features (principal); L97.819 Non-pressure chronic ulcer of other part of right lower leg with unspecified severity; E03.9 Hypothyroidism, unspecified; I87.8 Other specified disorders of veins; L97.829 Non-pressure chronic ulcer of other part of left lower leg with unspecified severity; F43.10 Post-traumatic stress disorder, unspecified; F11.20 Opioid dependence, uncomplicated; F17.210 Nicotine dependence, cigarettes, uncomplicated; Z71.6 Tobacco abuse counseling; Z23 Encounter for immunization; Z20.822 Contact with and (suspected) exposure to COVID-19; Z79.890 Hormone replacement therapy; Z79.899 Other long term (current) drug therapy
CPT/HCPCS: 36415; 80053; 80143; 80179; 80307; 81001; 81025; 85025; 87086; 87635; 90686; 93005; 99285; S9485

== ENCOUNTER → 2023-09-08 19:00 | Outpatient (BNV) | payer OTHER, SELFPAY | PROVIDERS: Admitting Provider Psychiatry & Neurology Psychiatry; Emergency Provider Internal Medicine; PCP Family Medicine; Visit Provider Psychiatry & Neurology Psychiatry | DX: F33.2 Major depressive disorder, recurrent severe without psychotic features (principal); F11.21 Opioid dependence, in remission; F43.11 Post-traumatic stress disorder, acute | CPT/HCPCS: 90792; 99231; 99232; 99239 ==